=== PATIENT | male | born 1945 | race Caucasian/White ===

== ENCOUNTER 2017-07-10 06:31 | Emergency (ER) | payer MEDICARE, OTHER ==
[2017-07-10 06:39] VITALS: BP 126/72
--- NOTE | 2017-07-10 06:55 | EDM.PDOC ---
ED HPI GENERAL MEDICAL PROBLEM - General Chief Complaint: ENT Problem Stated Complaint: POST EAR SURG, STILL BLEEDING Time Seen by Provider: 07/10/17 06:40 Source of Information: Reports: Patient History Limitations: Reports: No Limitations - History of Present Illness INITIAL COMMENTS - FREE TEXT/NARRATIVE: ER with c/o bleeding from surgical incision. Large excisional biopsy for basal skin cancer to area anterior to ear on Sunday. Noted bleeding to have started at supper, seemed to have stopped until woke this am and was dripping down neck. Location: Reports: Face Associated Symptoms: Reports: No Other Symptoms - Related Data Allergies Allergy/AdvReac Type Severity Reaction Status Date / Time Penicillins Allergy Anaphylactic Verified 07/10/17 06:43 Shock Home Meds: Home Meds Aspirin [Halfprin] 81 mg PO BEDTIME 10/01/14 [History] Citalopram [Citalopram HBr] 40 mg PO DAILY 10/01/14 [History] Metoprolol Tartrate [Lopressor] 25 mg PO Q12HR 10/01/14 [History] Simvastatin 40 mg PO BEDTIME 10/01/14 [History] Tiotropium [Spiriva Handihaler] 18 mcg PO DAILY 10/01/14 [History] amLODIPine Besylate [Amlodipine Besylate] 10 mg PO DAILY 10/01/14 [History] HYDROcodone/Ibuprofen [Hydrocodone-Ibuprofen 7.5-200] 1 tab PO Q8HR PRN [History] Isosorbide Mononitrate [Isosorbide Mononitrate ER] 30 mg PO .MORNING 10/08/14 [ History] Montelukast Sodium [Singulair] 10 mg PO BEDTIME 10/08/14 [History] Pramipexole [Mirapex] 0.125 mg PO BEDTIME PRN 10/08/14 [History] metFORMIN [Glucophage] 500 mg PO BID 12/06/14 [History] Past Medical History HEENT History: Reports: Impaired Vision Cardiovascular History: Reports: CAD, High Cholesterol, Hypertension, Stents, Other (See Below) Respiratory History: Reports: Asthma Psychiatric History: Reports: Depression Endocrine/Metabolic History: Reports: Diabetes, Type II Oncologic (Cancer) History: Reports: Basal Cell Carcinoma Other Dermatologic History: basal cell carcinoma - Infectious Disease History Infectious Disease History: Reports: None - Past Surgical History Cardiovascular Surgical History: Reports: Coronary Artery Stent GI Surgical History: Reports: Hernia, Inguinal Other Musculoskeletal Surgeries/Procedures:: knee surgery and big toe surgery Other Oncologic Surgeries/Procedures: basal cell carcinoma Social & Family History - Family History Family Medical History: Noncontributory - Tobacco Use Smoking Status *Q: Never Smoker Second Hand Smoke Exposure: No - Alcohol Use Days Per Week of Alcohol Use: 0 - Recreational Drug Use Recreational Drug Use: No - Living Situation & Occupation Living situation: Reports: , with Spouse Occupation: Employed ED ROS GENERAL - Review of Systems Review Of Systems: ROS reveals no pertinent complaints other than HPI. ED EXAM, SKIN/RASH Exam: See Below Exam Limited By: No Limitations General Appearance: No Apparent Distress, Mild Distress Eye Exam: Bilateral Eye: EOMI Ears: Normal External Exam, Normal Canal. No: Hearing Loss Nose: Normal Inspection Throat/Mouth: Normal Inspection Head: Normocephalic, Other (approximate 2 inch vertical surgical incision anterior to right tragus. No swelling or redness, slight bleeding mid insicion, large clot removed and with light pressure, bleeding ceased.) Respiratory/Chest: No Respiratory Distress, Lungs Clear, Normal Breath Sounds Cardiovascular: Normal Peripheral Pulses, Regular Rate, Rhythm GI/Abdominal: Normal Bowel Sounds, Soft Neurological: Alert, Oriented, Normal Cognition Psychiatric: Normal Affect Skin: Normal Color, Wound/Incision. No: Erythema Location, Skin: Face Course - Vital Signs Last Recorded V/S: Last Vital Signs Temp 97.7 F 07/10/17 06:38 Pulse 77 07/10/17 06:38 Resp 16 07/10/17 06:38 BP 126/72 07/10/17 06:38 Pulse Ox 96 07/10/17 06:38 Departure - Departure Time of Disposition: 06:49 Disposition: Home, Self-Care 01 Condition: Good Clinical Impression: Bleeding from wound, Status post excisional biopsy - Discharge Information Instructions: Laceration Care, Adult Additional Instructions: pressure dressing to wound x 2 hours then may remove coban and tape remaining dressing, follow up if recurrent bleeding
== END 2017-07-10 07:13 | disposition home or self-care (01) ==
LOC: DL.ED 06:31
DX: H95.42 Postprocedural hemorrhage of ear and mastoid process following other procedure (principal); E11.9 Type 2 diabetes mellitus without complications; I10 Essential (primary) hypertension; J45.909 Unspecified asthma, uncomplicated; Z88.0 Allergy status to penicillin; Z79.899 Other long term (current) drug therapy; Z79.82 Long term (current) use of aspirin
CPT/HCPCS: 99282; 99283

== ENCOUNTER 2017-08-19 20:58 | Emergency (ER) | payer MEDICARE, OTHER ==
[2017-08-19 21:16] VITALS: BP 136/73
--- NOTE | 2017-08-19 21:16 | EDM.PDOC ---
ED HPI GENERAL MEDICAL PROBLEM - General Chief Complaint: Upper Extremity Injury/Pain Stated Complaint: INCISION PAIN [id number] Time Seen by Provider: 08/19/17 21:13 Source of Information: Reports: Patient History Limitations: Reports: No Limitations - History of Present Illness INITIAL COMMENTS - FREE TEXT/NARRATIVE: s/p right forearm surgery 08-08, right arm been more swollen and sore. denies numbness in fingers. done @ "[facility]" dermatology. Right Lower Arm Pain Score (Numeric/FACES): 6 - Related Data Allergies Allergy/AdvReac Type Severity Reaction Status Date / Time Penicillins Allergy Anaphylactic Verified 08/19/17 21:16 Shock Home Meds: Home Meds Aspirin [Halfprin] 81 mg PO BEDTIME 10/01/14 [History] Metoprolol Tartrate [Lopressor] 25 mg PO Q12HR 10/01/14 [History] Simvastatin 40 mg PO BEDTIME 10/01/14 [History] Tiotropium [Spiriva Handihaler] 18 mcg PO DAILY 10/01/14 [History] amLODIPine Besylate [Amlodipine Besylate] 10 mg PO DAILY 10/01/14 [History] Isosorbide Mononitrate [Isosorbide Mononitrate ER] 30 mg PO .MORNING 10/08/14 [ History] Montelukast Sodium [Singulair] 10 mg PO BEDTIME 10/08/14 [History] metFORMIN [Glucophage] 500 mg PO BID 12/06/14 [History] Past Medical History HEENT History: Reports: Impaired Vision Cardiovascular History: Reports: CAD, High Cholesterol, Hypertension, Stents, Other (See Below) Respiratory History: Reports: Asthma Psychiatric History: Reports: Depression Endocrine/Metabolic History: Reports: Diabetes, Type II Oncologic (Cancer) History: Reports: Basal Cell Carcinoma Other Dermatologic History: basal cell carcinoma - Infectious Disease History Infectious Disease History: Reports: None - Past Surgical History Cardiovascular Surgical History: Reports: Coronary Artery Stent GI Surgical History: Reports: Hernia, Inguinal Other Musculoskeletal Surgeries/Procedures:: knee surgery and big toe surgery Other Oncologic Surgeries/Procedures: basal cell carcinoma Social & Family History - Family History Family Medical History: Noncontributory - Tobacco Use Smoking Status *Q: Never Smoker Second Hand Smoke Exposure: No - Alcohol Use Days Per Week of Alcohol Use: 0 - Recreational Drug Use Recreational Drug Use: No - Living Situation & Occupation Living situation: Reports: , with Spouse Occupation: Employed Review of Systems - Review of Systems Review Of Systems: ROS reveals no pertinent complaints other than HPI. ED EXAM, GENERAL - Physical Exam Exam: See Below Exam Limited By: No Limitations General Appearance: Alert, WD/WN, No Apparent Distress Ears: Hearing Grossly Normal Throat/Mouth: Normal Voice, No Airway Compromise Head: Atraumatic Neck: Non-Tender, Full Range of Motion Respiratory/Chest: No Respiratory Distress Cardiovascular: Regular Rate, Rhythm GI/Abdominal: Soft, Non-Tender Extremities: Other (right forearm suture intact with mid local erythema without cellulitis, no lymphangitis, NV wnl) Neurological: Alert, Oriented, Normal Cognition, Normal Gait, No Motor/Sensory Deficits Psychiatric: Anxious Skin Exam: Warm, Dry, Normal Color Lymphatic: No Adenopathy Course - Vital Signs Last Recorded V/S: Last Vital Signs Temp 36.7 C 08/19/17 21:07 Pulse 68 08/19/17 21:07 Resp 16 08/19/17 21:07 BP 136/73 08/19/17 21:07 Pulse Ox 96 08/19/17 21:07 - Orders/Labs/Meds Orders: Active Orders 24 hr Category Date Time Status CULTURE BLOOD [BC] Stat Lab 08/19/17 21:20 Received Clindamycin Phosphate [Cleocin] 900 mg Med 08/19/17 22:33 Ordered Sodium Chloride 0.9% [Normal Saline] 100 ml IV ONETIME Labs: Laboratory Tests 08/19/17 08/19/17 08/19/17 Range/Units 21:20 21:20 21:20 WBC 12.3 H (5.0-10.0) 10^3/uL RBC 5.03 (4.6-6.2) 10^6/uL Hgb 14.1 (14.0-18.0) g/dL Hct 41.1 (40.0-54.0) % MCV 81.7 (80-100) fL MCH 28.0 (27.0-34.0) pg MCHC 34.3 (33.0-35.0) g/dL Plt Count 236 (150-450) 10^3/uL Neut % (Auto) 58.6 (42.2-75.2) % Lymph % (Auto) 27.9 (20.5-50.1) % O[place] % (Auto) 10.2 H (2-8) % Eos % (Auto) 2.8 (1.0-3.0) % Baso % (Auto) 0.5 (0.0-1.0) % Sodium 138 (135-145) mmol/L Potassium 3.8 (3.6-5.0) mmol/L Chloride 104 (101-111) mmol/L Carbon Dioxide 23.0 (21.0-31.0) mmol/L Anion Gap 14.8 BUN 25 H (7-18) mg/dL Creatinine 0.7 (0.6-1.3) mg/dL Est Cr Clr Drug Dosing 81.05 mL/min Estimated GFR (MDRD) > 60 BUN/Creatinine Ratio 35.71 Glucose 179 H (74-105) mg/dL Lactic Acid 2.1 (0.5-2.2) mmol/L Calcium 9.3 (8.4-10.2) mg/dl Total Bilirubin 0.6 (0.2-1.0) mg/dL AST 22 (10-42) IU/L ALT 21 (10-60) IU/L Alkaline Phosphatase 57 (42-121) IU/L Total Protein 7.1 (6.7-8.2) g/dl Albumin 4.1 (3.2-5.5) g/dl Globulin 3.0 Albumin/Globulin Ratio 1.37 - Re-Assessments/Exams Free Text/Narrative Re-Assessment/Exam: 08/19/17 22:[address] Syed @ who kindly accepted pt. Departure - Departure Time of Disposition: 22:36 Disposition: DC/Tfer to Acute Hospital 02 Condition: Good Clinical Impression: Post-operative wound abscess Qualifiers: Encounter type: initial encounter Qualified Code(s): T81.4XXA - Infection following a procedure, initial encounter - Discharge Information Forms: Interfacility Transfer EMTALA - My Orders Last 24 Hours: My Active Orders 08/19/17 21:20 CULTURE BLOOD [BC] Stat 08/19/17 22:33 Clindamycin Phosphate [Cleocin] 900 mg Sodium Chloride 0.9% [Normal Saline] 100 ml IV ONETIME - Assessment/Plan Last 24 Hours: My Active Orders 08/19/17 21:20 CULTURE BLOOD [BC] Stat 08/19/17 22:33 Clindamycin Phosphate [Cleocin] 900 mg Sodium Chloride 0.9% [Normal Saline] 100 ml IV ONETIME
[2017-08-19 21:47] LABS: CHLORIDE,CL 104 mmol/L (101-111); SODIUM,NA 138 mmol/L (135-145)
[2017-08-19] MEDS ORDERED: Clindamycin Phosphate 900 MG in Sodium Chloride 0.9% 100 ML IV ONE (22:33)
== END 2017-08-19 23:02 ==
LOC: DL.ED 20:58
DX: T81.4XXA Infection following a procedure, initial encounter (principal); L02.413 Cutaneous abscess of right upper limb; I10 Essential (primary) hypertension; E11.9 Type 2 diabetes mellitus without complications; Z88.0 Allergy status to penicillin; Z79.82 Long term (current) use of aspirin; Z79.84 Long term (current) use of oral hypoglycemic drugs; Z79.899 Other long term (current) drug therapy
CPT/HCPCS: 36415; 73200; 80053; 83605; 85025; 87040; 96365; 99285; J7050; S0077

== ENCOUNTER 2018-06-29 17:44 | Emergency (ER) | payer MEDICARE, OTHER ==
[2018-06-29] MEDS ORDERED: Sodium Chloride 0.9% 1,000 ML IV ONE (17:53)
[2018-06-29] MEDS ORDERED: Iopamidol 612 MG/ML 100 ML Bottle IVPUSH ONE (17:53)
[2018-06-29] MEDS ORDERED: fentaNYL 100 MCG/2 ML SDV IVPUSH ONE (17:53)
[2018-06-29] MEDS ORDERED: Ondansetron 4 MG/2 ML SDV IV ONE ×2 (17:53→19:53)
[2018-06-29] MEDS ORDERED: Sodium Chloride 0.9% 10 ML Syringe FLUSH PRN (17:56)
[2018-06-29 18:44] LABS: ANION GAP 13.3; CHLORIDE,CL 103 mmol/L (101-111); SODIUM,NA 134 mmol/L (135-145)
--- NOTE | 2018-06-29 19:00 | EDM.PDOC ---
"Scribed by Maria Esther Douglas 06/29/18 181 for Arpita Kiran MD ED HPI GENERAL MEDICAL PROBLEM - General Chief Complaint: Trauma Stated Complaint: AMBULANCE,TRAUMA,FALL Time Seen by Provider: 06/29/18 17:41 Source of Information: Reports: Patient, EMS, EMS Notes Reviewed, Family (, son), RN, RN Notes Reviewed History Limitations: Reports: No Limitations - History of Present Illness INITIAL COMMENTS - FREE TEXT/NARRATIVE: TRAUMA CODED CALLED OVERHEAD: 1657 Hours Pt arrives from home to ER by [facility] at: 1741 Hours with report that pt fell backwards off a tall step ladder on the second floor of his home and landed on his back. Pt estimates that he fell at about 1330 Hours today, but was not found by family until approx. 4 or 5 hours later. Pt does not know if he lost consciousness or not. Pt c/o confusion/memory loss, severe low back pain. PRIMARY TRAUMA SURVEY: Arrives by ambulance without c-collar and without long spine board. Pt awake, alert, oriented to person, and place only with confusion to the recent events. Pt was actively vomiting on arrival. AIRWAY: Patent nasal and oral airways. Conversant with clear speech. BREATHING: Spontaneous respirations, with lungs clear to auscultation B/L. CIRCULATION: Good color, no cyanosis. Intact peripheral pulses at all 4 distal extremities, normal capillary refill time at all four extremities distal digits. Heart RRR, no murmur, no rub. DISABILITY/DEFORMITIES: No bleeding. No upper extremity pain, obvious deformity, lacerations, abrasions, swelling, bruising, discoloration, or other signs of injury. B/L hip pain to palpation. Martha pelvis intact, & stable, but very tender. Abdomen benign to exam with no signs of pain to palpation. Chest non-tender anteriorly, no flail chest, crepitus, or subcutaneous emphysema. Lumbar region of spine acutely tender to palpation. Neuro. grossly intact with pt. A&O x2, some appropriate conversation, with some confusion. CN II-XII intact. No acute motor or sensory deficits, GCS 14 on arrival to ER. Skin clean, dry, warm, and intact. EXPOSURE: Pt's clothing was cut free and removed. 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 Medication(s) (Fentanyl 100mcg IM by EMS on scene.) - Related Data Allergies Allergy/AdvReac Type Severity Reaction Status Date / Time Penicillins Allergy Anaphylactic Verified 08/19/17 21:16 Shock Home Meds: Home Meds Aspirin [Halfprin] 81 mg PO BEDTIME 10/01/14 [History] Metoprolol Tartrate [Lopressor] 25 mg PO Q12HR 10/01/14 [History] Simvastatin 40 mg PO BEDTIME 10/01/14 [History] Tiotropium [Spiriva Handihaler] 18 mcg PO DAILY 10/01/14 [History] amLODIPine Besylate [Amlodipine Besylate] 10 mg PO DAILY 10/01/14 [History] Isosorbide Mononitrate [Isosorbide Mononitrate ER] 30 mg PO .MORNING 10/08/14 [ History] Montelukast Sodium [Singulair] 10 mg PO BEDTIME 10/08/14 [History] metFORMIN [Glucophage] 1,000 mg PO BID 12/06/14 [History] Pramipexole [Mirapex] 0.125 mg PO BEDTIME 06/29/18 [History] Trospium Chloride 20 mg PO BID 06/29/18 [History] Venlafaxine [Effexor XR] 150 mg PO DAILY 06/29/18 [History] glipiZIDE [Glucotrol XL] 5 mg PO DAILY 06/29/18 [History] Past Medical History HEENT History: Reports: Impaired Vision Cardiovascular History: Reports: CAD, High Cholesterol, Hypertension, Stents, Other (See Below) Respiratory History: Reports: Asthma Psychiatric History: Reports: Depression Endocrine/Metabolic History: Reports: Diabetes, Type II Oncologic (Cancer) History: Reports: Basal Cell Carcinoma Dermatologic History: Reports: Benign Melanoma Other Dermatologic History: basal cell carcinoma - Infectious Disease History Infectious Disease History: Reports: None - Past Surgical History Cardiovascular Surgical History: Reports: Coronary Artery Stent GI Surgical History: Reports: Hernia, Inguinal Other Musculoskeletal Surgeries/Procedures:: knee surgery and big toe surgery Other Oncologic Surgeries/Procedures: basal cell carcinoma Social & Family History - Family History Family Medical History: Noncontributory - Caffeine Use Caffeine Use: Reports: Coffee - Living Situation & Occupation Living situation: Reports: , with Spouse Occupation: Employed Review of Systems - Review of Systems Review Of Systems: Unable To Obtain ED EXAM, GENERAL - Physical Exam Exam: See Below Free Text/Narrative:: SECONDARY TRAUMA SURVEY: at 1802 Hours Exam Limited By: Altered Mental Status General Appearance: Alert, No Apparent Distress, Anxious Eye Exam: Bilateral Eye: EOMI, Normal Inspection, PERRL Ears: Normal External Exam, Normal Canal, Hearing Grossly Normal, Normal TMs, Other (No hemotympanum B/L) Nose: Normal Inspection, Normal Mucosa, No Blood Throat/Mouth: Normal Inspection, Normal Lips, Normal Teeth, Normal Gums, Normal Oropharynx, Normal Voice, No Airway Compromise Head: Atraumatic, Normocephalic Neck: Normal Inspection, Supple, Non-Tender, Full Range of Motion, Other (C- spine cleared by CT scan) Respiratory/Chest: No Respiratory Distress, Lungs Clear, Normal Breath Sounds, No Accessory Muscle Use, Chest Non-Tender Cardiovascular: Regular Rate, Rhythm, No Edema GI/Abdominal: Normal Bowel Sounds, Soft, Non-Tender (abdomen non-tender at secondary trauma survey), No Distention, No Abnormal Bruit, Pelvis Stable. No: Guarding, Rigid, Rebound (Male) Exam: Normal Inspection Rectal (Males) Exam: Deferred Back Exam: Decreased Range of Motion, Muscle Spasm, Paraspinal Tenderness ( lumbar), Vertebral Tenderness (lumbar). No: CVA Tenderness (L), CVA Tenderness (R) Extremities: Normal Range of Motion, No Pedal Edema, Normal Capillary Refill, Other (soft tissue swelling w/hematoma at Rt proximal posterior forearm) Neurological: Alert, Oriented (person only), CN II-XII Intact, No Motor/Sensory Deficits, Confused, Memory Loss Recent Events, Other (GCS 14 at one hour, and at time of disposition) Psychiatric: Normal Mood Skin Exam: Warm, Dry, Intact EKG INTERPRETATION EKG Date: 06/29/18 Time: 18:13 Rhythm: Other (sinus rhythm) Rate (Beats/Min): 70 [place]: Normal P-Wave: Present QRS: Normal ST-T: Normal QT: Normal Comparison: NA - No Prior EKG Course - Vital Signs Last Recorded V/S: See Trauma paper chart for VS. - Orders/Labs/Meds Orders: Active Orders 24 hr Category Date Time Status Blood Glucose Check, Bedside [] ONETIME Care 06/29/18 17:57 Active EKG 12 Lead [EKG Documentation Completion] [] STAT Care 06/29/18 17:57 Active Insert Clifford Catheter [Insert Urinary Catheter] [OM.PC] Care 06/29/18 17:56 Ordered Stat Peripheral IV Care [] . DIRECTED Care 06/29/18 17:57 Active Urinary Catheter Assessment [RC] ASDIRECTED Care 06/29/18 17:56 Active Sodium Chloride 0.9% @ 150 MLS/HR (1000ml) Med 06/29/18 20:00 Ordered Sodium Chloride 0.9% [Normal Saline] 1,000 ml IV ASDIRECTED Sodium Chloride 0.9% [Saline Flush] Med 06/29/18 17:56 Active 10 ml FLUSH ASDIRECTED PRN Peripheral IV Insertion Adult [OM.PC] Stat Oth 06/29/18 17:57 Ordered Medication Orders Sodium Chloride (Saline Flush) 10 ml FLUSH ASDIRECTED PRN PRN Reason: Keep Vein Open Labs: Laboratory Tests 06/29/18 06/29/18 06/29/18 Range/Units 18:08 18:08 18:08 WBC 13.1 H (5.0-10.0) 10^3/uL RBC 4.87 (4.6-6.2) 10^6/uL Hgb 13.0 L (14.0-18.0) g/dL Hct 39.2 L (40.0-54.0) % MCV 80.5 (80-100) fL MCH 26.7 L (27.0-34.0) pg MCHC 33.2 (33.0-35.0) g/dL Plt Count 205 (150-450) 10^3/uL Neut % (Auto) 70.8 (42.2-75.2) % Lymph % (Auto) 18.9 L (20.5-50.1) % [place] % (Auto) 8.9 H (2-8) % Eos % (Auto) 1.1 (1.0-3.0) % Baso % (Auto) 0.3 (0.0-1.0) % PT 10.9 (9.0-12.0) SEC INR 1.1 (0.9-1.2) APTT 24.7 (22.0-34.0) SEC Sodium 134 L (135-145) mmol/L Potassium 4.3 (3.6-5.0) mmol/L Chloride 103 (101-111) mmol/L Carbon Dioxide 22.0 (21.0-31.0) mmol/L Anion Gap 13.3 BUN 29 H (7-18) mg/dL Creatinine 0.8 (0.6-1.3) mg/dL Est Cr Clr Drug Dosing 69.89 mL/min Estimated GFR (MDRD) > 60 BUN/Creatinine Ratio 36.25 Glucose 192 H (74-105) mg/dL POC Glucose (83-110) mg/dl Calcium 8.5 (8.4-10.2) mg/dl Total Bilirubin 0.6 (0.2-1.0) mg/dL AST 21 (10-42) IU/L ALT 17 (10-60) IU/L Alkaline Phosphatase 43 (42-121) IU/L Creatine Kinase 68 (26-174) IU/L Troponin I < 0.02 (0.00-0.02) ng/ml Total Protein 6.6 L (6.7-8.2) g/dl Albumin 3.6 (3.2-5.5) g/dl Globulin 3.0 Albumin/Globulin Ratio 1.20 Amylase 43 (28-100) U/L Lipase 18 L (22-51) U/L Urine Color (YELLOW) Urine Appearance (CLEAR) Urine pH (5.0-9.0) Ur Specific [place] (1.005-1.030) Urine Protein (NEGATIVE) Urine Glucose (UA) (NEGATIVE) Urine Ketones (NEGATIVE) Urine Occult Blood (NEGATIVE) Urine Nitrite (NEGATIVE) Urine Bilirubin (NEGATIVE) Urine Urobilinogen (0.2-1.0) mg/dL Ur Leukocyte Esterase (NEGATIVE) Urine RBC /HPF Urine WBC (0-5/HPF) /HPF Ur Epithelial Cells /HPF Urine Bacteria (0-FEW/HPF) /HPF Urine Mucus /LPF Urine Opiates Screen (NEGATIVE) Ur Oxycodone Screen (NEGATIVE) Urine Methadone Screen (NEGATIVE) Ur Barbiturates Screen (NEGATIVE) U Tricyclic Antidepress (NEGATIVE) Ur Phencyclidine Scrn (NEGATIVE) Ur Amphetamine Screen (NEGATIVE) U Methamphetamines Scrn (NEGATIVE) Urine MDMA Screen (NEGATIVE) U Benzodiazepines Scrn (NEGATIVE) Urine Cocaine Screen (NEGATIVE) U Marijuana (THC) Screen (NEGATIVE) Ethyl Alcohol < 5 mg/dL 06/29/18 06/29/18 06/29/18 Range/Units 18:18 19:14 19:14 WBC (5.0-10.0) 10^3/uL RBC (4.6-6.2) 10^6/uL Hgb (14.0-18.0) g/dL Hct (40.0-54.0) % MCV (80-100) fL MCH (27.0-34.0) pg MCHC (33.0-35.0) g/dL Plt Count (150-450) 10^3/uL Neut % (Auto) (42.2-75.2) % Lymph % (Auto) (20.5-50.1) % [place] % (Auto) (2-8) % Eos % (Auto) (1.0-3.0) % Baso % (Auto) (0.0-1.0) % PT (9.0-12.0) SEC INR (0.9-1.2) APTT (22.0-34.0) SEC Sodium (135-145) mmol/L Potassium (3.6-5.0) mmol/L Chloride (101-111) mmol/L Carbon Dioxide (21.0-31.0) mmol/L Anion Gap BUN (7-18) mg/dL Creatinine (0.6-1.3) mg/dL Est Cr Clr Drug Dosing mL/min Estimated GFR (MDRD) BUN/Creatinine Ratio Glucose (74-105) mg/dL POC Glucose 171 H (83-110) mg/dl Calcium (8.4-10.2) mg/dl Total Bilirubin (0.2-1.0) mg/dL AST (10-42) IU/L ALT (10-60) IU/L Alkaline Phosphatase (42-121) IU/L Creatine Kinase (26-174) IU/L Troponin I (0.00-0.02) ng/ml Total Protein (6.7-8.2) g/dl Albumin (3.2-5.5) g/dl Globulin Albumin/Globulin Ratio Amylase (28-100) U/L Lipase (22-51) U/L Urine Color Yellow (YELLOW) Urine Appearance Clear (CLEAR) Urine pH 6.0 (5.0-9.0) Ur Specific [place] 1.020 (1.005-1.030) Urine Protein Negative (NEGATIVE) Urine Glucose (UA) 100 H (NEGATIVE) Urine Ketones Trace H (NEGATIVE) Urine Occult Blood Negative (NEGATIVE) Urine Nitrite Negative (NEGATIVE) Urine Bilirubin Negative (NEGATIVE) Urine Urobilinogen 0.2 (0.2-1.0) mg/dL Ur Leukocyte Esterase Negative (NEGATIVE) Urine RBC 0-5 /HPF Urine WBC 0-5 (0-5/HPF) /HPF Ur Epithelial Cells Few /HPF Urine Bacteria Few (0-FEW/HPF) /HPF Urine Mucus Moderate H /LPF Urine Opiates Screen Negative (NEGATIVE) Ur Oxycodone Screen Negative (NEGATIVE) Urine Methadone Screen Negative (NEGATIVE) Ur Barbiturates Screen Negative (NEGATIVE) U Tricyclic Antidepress Negative (NEGATIVE) Ur Phencyclidine Scrn Negative (NEGATIVE) Ur Amphetamine Screen Negative (NEGATIVE) U Methamphetamines Scrn Negative (NEGATIVE) Urine MDMA Screen Negative (NEGATIVE) U Benzodiazepines Scrn Negative (NEGATIVE) Urine Cocaine Screen Negative (NEGATIVE) U Marijuana (THC) Screen Negative (NEGATIVE) Ethyl Alcohol mg/dL Meds: Medications Generic Name Dose Route Start Last Admin Trade Name Freq PRN Reason Stop Dose Admin Sodium Chloride 10 ml 06/29/18 17:56 Saline Flush FLUSH ASDIRECTED PRN Keep Vein Open Discontinued Medications Generic Name Dose Route Start Last Admin Trade Name Freq PRN Reason Stop Dose Admin Fentanyl 50 mcg 06/29/18 17:53 06/29/18 18:44 Sublimaze IVPUSH 06/29/18 17:54 50 mcg ONETIME ONE Administration Hydromorphone HCl 1 mg 06/29/18 19:53 Dilaudid IVPUSH 06/29/18 19:54 ONETIME ONE Sodium Chloride 1,000 mls @ 999 mls/hr 06/29/18 17:53 06/29/18 18:36 Normal Saline IV 06/29/18 18:53 999 mls/hr .BOLUS ONE Administration Iopamidol 100 ml 06/29/18 17:53 06/29/18 19:12 Isovue-300 (61%) IVPUSH 06/29/18 17:54 100 ml ONETIME ONE Administration Ondansetron HCl 4 mg 06/29/18 17:53 06/29/18 18:42 Zofran IV 06/29/18 17:54 4 mg ONETIME ONE Administration Ondansetron HCl 4 mg 06/29/18 19:53 Zofran IV 06/29/18 19:54 ONETIME ONE - Radiology Interpretation Free Text/Narrative:: [facility] [place] - [facility] Final Radiology Report Call: [phone] assistance Online chat: [email or web address] Name: SHANNON RAPHAEL Age: 72Years M Date: 06/29/2018 SSN: -- : 1945 Study: CT HEAD WO Requesting Physician: ARPITA KIRAN Images: [id number] Addl Studies: Provided Clinical History: Contrast: Without Contrast Medium: Contrast Amount: Contrast Method: Page 1 of 2 EXAM: CT Head Without Intravenous Contrast EXAM DATE/TIME: 06/29/2018 5:55 PM CLINICAL HISTORY: 72 years old, male; Signs and symptoms; Other: Fell off ladder unknown height, found 4 or 5 hours later with confusion, vomiting TECHNIQUE: Axial computed tomography images of the head/brain without intravenous contrast. All CT scans at this facility use at least one of these dose optimization techniques: automated exposure control; mA and/or kV adjustment per patient size (includes targeted exams where dose is matched to clinical indication); or iterative reconstruction. Sagittal reformatted images were created and reviewed. COMPARISON: CT Head wo Cont 04/28/2015 10:14 AM FINDINGS: Brain: No acute intracerebral abnormality or injury. Mild age-appropriate cerebral atrophy. A small pancake-like area of chronic calcified thickening of the right tentorium cerebelli is seen on images 29 and 13 of series 12, not markedly changed since 2014. I doubt this represents a calcified meningioma. Ventricles: Normal. No ventriculomegaly. Bones/joints: Normal. No acute fracture. Sinuses: Moderate mucosal thickening of the left maxillary sinus is present. No evidence of acute sinusitis. Mastoid air cells: Normal as visualized. No mastoid effusion. Soft tissues: Normal. SHANNON RAPHAEL | Final Radiology Report CONFIDENTIALITY STATEMENT This report is intended only for use by the referring physician, and only in accordance with law. If you received this in error, call [phone]. Page 2 of 2 IMPRESSION: 1. No acute intracerebral abnormality or injury. 2. Mild age-appropriate cerebral atrophy. A small pancake-like area of chronic calcified thickening of the right tentorium cerebelli is seen on images 29 and 13 of series 12, not markedly changed since the previous head CT from 2014. I doubt this represents a calcified meningioma. 3. Moderate mucosal thickening of the left maxillary sinus is present. No evidence of acute sinusitis. Thank you for allowing us to participate in the care of your patient. Dictated and Authenticated by: Cullen Pantoja MD 06/29/2018 6:37 PM Central Time ([place] & [place]) [facility] - [facility] Final Radiology Report Call: [phone] assistance Online chat: [email or web address] Name: SHANNON RAPHAEL Age: 72Years M Date: 06/29/2018 SSN: -- : 1945 Study: CT SPINE CERVICAL WO Requesting Physician: ARPITA KIRAN Images: [id number] Addl Studies: Provided Clinical History: Contrast: Without Contrast Medium: Contrast Amount: Contrast Method: Page 1 of 2 EXAM: CT Cervical Spine Without Intravenous Contrast EXAM DATE/TIME: 06/29/2018 5:55 PM CLINICAL HISTORY: 72 years old, male; Signs and symptoms; Other: Fall from ladder/pain TECHNIQUE: Axial computed tomography images of the cervical spine without intravenous contrast. All CT scans at this facility use at least one of these dose optimization techniques: automated exposure control; mA and/or kV adjustment per patient size (includes targeted exams where dose is matched to clinical indication); or iterative reconstruction. Coronal and sagittal reformatted images were created and reviewed. COMPARISON: No relevant prior studies available. FINDINGS: VERTEBRAE: No acute fractures. The cervical spine alignment is within normal limits. Chronic degenerative vertebral body endplate osteophytosis with diminished disc height is seen at levels C2- C6. DISCS/SPINAL CANAL/NEURAL FORAMINA: Chronic degenerative bony neuroforaminal stenosis secondary to uncal joint and posterior facet joint degenerative arthropathy, bilaterally at C3/C4, C4/C5 and C5/C6. Moderate to moderately severe central spinal canal stenosis is present at levels C2/C3 and C3/C4, secondary to posterior partly calcified disc bulging and short pedicles. SOFT TISSUES: Normal. Normal position, size and shape of the cerebellar tonsils. SHANNON RAPHAEL | Final Radiology Report CONFIDENTIALITY STATEMENT This report is intended only for use by the referring physician, and only in accordance with law. If you received this in error, call [phone]. Page 2 of 2 LUNG APICES: Unremarkable as visualized. IMPRESSION: 1. No acute fractures. 2. The cervical spine alignment is within normal limits. 3. Chronic degenerative vertebral body endplate osteophytosis with diminished disc height is seen at levels C2-C6. 4. Chronic degenerative bony neuroforaminal stenosis secondary to uncal joint and posterior facet joint degenerative arthropathy, bilaterally at C3/C4, C4/C5 and C5/C6. 5. Moderate to moderately severe central spinal canal stenosis is present at levels C2/C3 and C3/C4, secondary to posterior partly calcified disc bulging and short vertebral body pedicles. Thank you for allowing us to participate in the care of your patient. Dictated and Authenticated by: Cullen Pantoja MD 06/29/2018 6:43 PM Central Time ([place] & [place]) [facility] Final Radiology Report Call: [phone] assistance Online chat: [email or web address] Name: SHANNON RAPHAEL Age: 72Years M Date: 06/29/2018 SSN: -- : 1945 Study: CT CHEST W Requesting Physician: ARPITA KIRAN Images: [id number] Addl Studies: [id number] - CT ABDOMEN/PELVIS W (1) Provided Clinical History: Contrast: With Contrast Medium: [id number] Contrast Amount: 100 mL Contrast Method: lac Page 1 of 3 EXAM: CT Chest With Intravenous Contrast EXAM DATE/TIME: 06/29/2018 5:55 PM CLINICAL HISTORY: 72 years old, male; Signs and symptoms; Vomiting and other: Fall from ladder, unknown height found 4-5 hours later--low back pain and martha pelvis; Other: Same TECHNIQUE: Axial computed tomography images of the chest with intravenous contrast. All CT scans at this facility use at least one of these dose optimization techniques: automated exposure control; mA and/or kV adjustment per patient size (includes targeted exams where dose is matched to clinical indication); or iterative reconstruction. Coronal and sagittal reformatted images were created and reviewed. CONTRAST: 100 ml of [id number] administered intravenously. COMPARISON: CT Chest wo Cont 06/06/2016 12:57 PM FINDINGS: Lungs: There is mild dependent atelectasis in the right lung base. Pleural space: Normal. No pneumothorax. No pleural effusion. Heart: Normal. No cardiomegaly. No pericardial effusion. Aorta: There is calcification of the aortic annulus which is unchanged. The aorta demonstrates moderate atherosclerotic calcification. Lymph nodes: Unremarkable. No enlarged lymph nodes. SHANNON RAPHAEL | Final Radiology Report Page 2 of 3 Bones/joints: There an old right anterolateral rib fracture on transaxial series 16 image 33. Soft tissues: Unremarkable. IMPRESSION: 1. Mild dependent atelectasis in the right lung base. 2. Calcification of the aortic valve anulus. 3. Old right rib fracture. No new rib fracture is seen. 4. No sign of acute cardiopulmonary abnormality. EXAM: CT Abdomen and Pelvis With Intravenous Contrast EXAM DATE/TIME: 06/29/2018 5:55 PM CLINICAL HISTORY: 72 years old, male; Signs and symptoms; Vomiting and other: Fall from ladder, unknown height found 4-5 hours later--low back pain and martha pelvis; Other: Same TECHNIQUE: Axial computed tomography images of the abdomen and pelvis with intravenous contrast. All CT scans at this facility use at least one of these dose optimization techniques: automated exposure control; mA and/or kV adjustment per patient size (includes targeted exams where dose is matched to clinical indication); or iterative reconstruction. Coronal and sagittal reformatted images were created and reviewed. CONTRAST: 100 ml of [id number] administered intravenously. COMPARISON: CT Chest wo Cont 06/06/2016 12:57 PM FINDINGS: Lower thorax: No acute findings. ABDOMEN: Liver: Normal. No mass. Gallbladder and bile ducts: Normal. No calcified stones. No ductal dilation. Pancreas: Normal. No ductal dilation. Spleen: Normal. No splenomegaly. Adrenals: Normal. No mass. Kidneys and ureters: Normal. No hydronephrosis. Stomach and bowel: The stomach is distended with gas and fluid. There are multiple diverticula in the distal descending colon but no sign of acute diverticulitis. Appendix: A normal appendix is seen on series 17 and coronal image 45. The cecum is mobile and located in the right upper quadrant as is the appendix. SHANNON RAPHAEL | Final Radiology Report CONFIDENTIALITY STATEMENT This report is intended only for use by the referring physician, and only in accordance with law. If you received this in error, call [phone]. Page 3 of 3 PELVIS: Bladder: Unremarkable as visualized. Reproductive: Unremarkable as visualized. ABDOMEN and PELVIS: Intraperitoneal space: Normal. No free air. No significant fluid collection. Bones/joints: There is severe disc space narrowing and vacuum disc phenomenon at L4-L5 and at L3-L4. There is no sign of fracture in the abdomen or pelvis. Soft tissues: There is a 4.6 cm fat containing left inguinal hernia. Vasculature: The aorta demonstrates mild atherosclerotic calcification. Lymph nodes: Normal. No enlarged lymph nodes. IMPRESSION: 1. The stomach is distended with gas and fluid. 2. Multiple diverticula in the distal descending colon but no sign of acute diverticulitis. 3. Degenerative changes of the lumbar spine but no sign of fracture or dislocation. 4. No sign of intra-abdominal hemorrhage or other acute intra-abdominal injury. 5. Fat containing left inguinal hernia. Thank you for allowing us to participate in the care of your patient. Dictated and Authenticated by: Martínez Quintero DO 06/29/2018 7:04 PM Central Time ([place] & [place]) - Re-Assessments/Exams Free Text/Narrative Re-Assessment/Exam: 06/29/18 19:[address] Cabrera at [facility] for observation due to unknown Ht of fall, lengthy down time, unclear mech. of fall. Unknown if pt had a mechanical fall, or if he experienced a medical event such as arrhythmia, syncope, etc. Departure - Departure Time of Disposition: 19:40 Disposition: DC/Tfer to Acute Hospital 02 Condition: Serious Clinical Impression: Concussion Qualifiers: Encounter type: initial encounter Loss of consciousness presence/duration: with LOC of unspecified duration Qualified Code(s): S06.0X9A - Concussion with loss of consciousness of unspecified duration, initial encounter Fracture of transverse process of lumbar vertebra Qualifiers: Encounter type: initial encounter Fracture type: closed Qualified Code(s): S32.009A - Unspecified fracture of unspecified lumbar vertebra, initial encounter for closed fracture Fall from ladder Qualifiers: Encounter type: initial encounter Qualified Code(s): W11.XXXA - Fall on and from ladder, initial encounter Altered mental status Qualifiers: Altered mental status type: transient alteration of awareness Qualified Code(s) : R40.4 - Transient alteration of awareness - Discharge Information *PRESCRIPTION DRUG MONITORING PROGRAM REVIEWED*: No *COPY OF PRESCRIPTION DRUG MONITORING REPORT IN PATIENT KALEB: No Forms: ED Department Discharge, Interfacility Transfer EMTALA - My Orders Last 24 Hours: My Active Orders 06/29/18 17:56 Insert Clifford Catheter [Insert Urinary Catheter] [OM.PC] Stat Urinary Catheter Assessment [RC] ASDIRECTED Sodium Chloride 0.9% [Saline Flush] 10 ml FLUSH ASDIRECTED PRN 06/29/18 17:57 Blood Glucose Check, Bedside [RC] ONETIME EKG 12 Lead [EKG Documentation Completion] [RC] STAT Peripheral IV Care [RC] . DIRECTED Peripheral IV Insertion Adult [OM.PC] Stat 06/29/18 20:00 Sodium Chloride 0.9% @ 150 MLS/HR (1000ml) Sodium Chloride 0.9% [Normal Saline] 1,000 ml IV ASDIRECTED - Assessment/Plan Last 24 Hours: My Active Orders 06/29/18 17:56 Insert Clifford Catheter [Insert Urinary Catheter] [OM.PC] Stat Urinary Catheter Assessment [RC] ASDIRECTED Sodium Chloride 0.9% [Saline Flush] 10 ml FLUSH ASDIRECTED PRN 06/29/18 17:57 Blood Glucose Check, Bedside [RC] ONETIME EKG 12 Lead [EKG Documentation Completion] [RC] STAT Peripheral IV Care [RC] . DIRECTED Peripheral IV Insertion Adult [OM.PC] Stat 06/29/18 20:00 Sodium Chloride 0.9% @ 150 MLS/HR (1000ml) Sodium Chloride 0.9% [Normal Saline] 1,000 ml IV ASDIRECTED I have read and agree with the documentation that has been completed regarding this visit. By signing this record, I attest that the documentation was completed in my physical presence and is an accurate record of the encounter."
[2018-06-29] MEDS ORDERED: HYDROmorphone 1 MG/ML Syringe IVPUSH ONE ×2 (19:53→22:37)
[2018-06-29] MEDS ORDERED: Sodium Chloride 0.9% 1,000 ML IV SCH (20:00)
== END 2018-06-29 22:52 ==
LOC: DL.ED 17:44
DX: S06.0X9A Concussion with loss of consciousness of unspecified duration, initial encounter (principal); S32.009A Unspecified fracture of unspecified lumbar vertebra, initial encounter for closed fracture; R40.4 Transient alteration of awareness; E11.9 Type 2 diabetes mellitus without complications; I10 Essential (primary) hypertension; Z88.0 Allergy status to penicillin; Z79.82 Long term (current) use of aspirin; Z79.899 Other long term (current) drug therapy; W11.XXXA Fall on and from ladder, initial encounter
CPT/HCPCS: 36415; 70450; 71260; 72125; 72128; 72131; 74177; 80053; 80305; 81001; 82150; 82550; 82962; 83690; 84484; 85025; 85610; 85730; 93005; 96361; 96374; 96375; 96376; 99285; G0480; J1170; J2405; J3010; J7030; J7050; Q9967

== ENCOUNTER 2020-07-07 14:46 | Inpatient (IN) | payer MEDICARE, OTHER ==
--- NOTE | 2020-07-07 16:21 | CT ---
EXAMINATION: Chest wo Cont SEX: Male AGE: 74 years CLINICAL HISTORY: 74-year-old hypertensive 200 pound diabetic male with shortness of breath (COVID positive) reported to have "mild bronchitis and bibasilar platelike atelectasis with small nodule, posteriorly, LLL" on CT July 2018. Scan technique: Volume acquisition of data from the chest (bony thorax, lungs and mediastinum) obtained with patient lying supine on the Siemens multi slice scanner [place], [place]. All data archived in the PACS system for storage, reformatting axial/sagittal/coronal planes and study (lung/mediastinal windows). Interpretation: 1. Kyphosis, multilevel disc disease and hypertrophic spondylosis dorsal spine. 2. Calcifications. No aneurysm or dissection. 3. Patchy platelike atelectasis both lung bases and chronic peribronchial "cuffing" (bronchitis). 4. *No new signs of heart failure, lung mass, hilar lymphadenopathy or focal lobar pneumonia. 5. No pneumothorax or pneumomediastinum. Midline tracheal bronchial airway unremarkable. 6. Cholelithiasis. Unenhanced liver, stomach, spleen and pancreas unremarkable. CONCLUSION: No acute new cardiopulmonary abnormality. Cronic bronchitis and bibasilar atelectasis. Cholelithiasis.
--- NOTE | 2020-07-07 16:41 | EDM.PDOC ---
ED HPI GENERAL MEDICAL PROBLEM - General Chief Complaint: Fever Stated Complaint: AMBULANCE Time Seen by Provider: 07/07/20 16:36 Source of Information: Reports: Patient, RN, RN Notes Reviewed History Limitations: Reports: No Limitations - History of Present Illness INITIAL COMMENTS - FREE TEXT/NARRATIVE: Patient presents to the ED via personal vehicle with complaints of shortness of breath, fever, and cough. Per the patient his symptoms began last night, 07/06/20, prior to going to bed. He states his was tested for COVID two days ago, 07/04/20, and was negative; she is asymptomatic. He states his fever spiked this AM at 100.5. He does attest to shaking chills, fatigue, nausea and muscle aches. He denies headache, vomiting, diarrhea, dysuria, hematuria, or abdominal pain. He has not taken any medications for this problem. Generalized Pain Score (Numeric/FACES): 10 - Related Data Allergies Allergy/AdvReac Type Severity Reaction Status Date / Time Penicillins Allergy Anaphylactic Verified 07/07/20 15:15 Shock Home Meds: Home Meds Aspirin [Halfprin] 81 mg PO BEDTIME 10/01/14 [History] Metoprolol Tartrate [Lopressor] 25 mg PO Q12HR 10/01/14 [History] Simvastatin 40 mg PO BEDTIME 10/01/14 [History] Tiotropium [Spiriva Handihaler] 18 mcg PO DAILY 10/01/14 [History] amLODIPine Besylate [Amlodipine Besylate] 10 mg PO DAILY 10/01/14 [History] Isosorbide Mononitrate [Isosorbide Mononitrate ER] 30 mg PO .MORNING 10/08/14 [History] Montelukast Sodium [Singulair] 10 mg PO BEDTIME 10/08/14 [History] metFORMIN [Glucophage] 1,000 mg PO BID 12/06/14 [History] Pramipexole [Mirapex] 0.125 mg PO BEDTIME 06/29/18 [History] Trospium Chloride 20 mg PO BID 06/29/18 [History] Venlafaxine [Effexor XR] 150 mg PO DAILY 06/29/18 [History] glipiZIDE [Glucotrol XL] 5 mg PO DAILY 06/29/18 [History] Past Medical History HEENT History: Reports: Impaired Vision Cardiovascular History: Reports: CAD, High Cholesterol, Hypertension, Stents, Other (See Below) Respiratory History: Reports: Asthma Psychiatric History: Reports: Depression Endocrine/Metabolic History: Reports: Diabetes, Type II Oncologic (Cancer) History: Reports: Basal Cell Carcinoma Dermatologic History: Reports: Benign Melanoma Other Dermatologic History: basal cell carcinoma - Infectious Disease History Infectious Disease History: Reports: None - Past Surgical History Cardiovascular Surgical History: Reports: Coronary Artery Stent GI Surgical History: Reports: Hernia, Inguinal Other Musculoskeletal Surgeries/Procedures:: knee surgery and big toe surgery Other Oncologic Surgeries/Procedures: basal cell carcinoma Social & Family History - Family History Family Medical History: Noncontributory - Tobacco Use Tobacco Use Status *Q: Never Tobacco User - Caffeine Use Caffeine Use: Reports: Coffee - Recreational Drug Use Recreational Drug Use: No - Living Situation & Occupation Living situation: Reports: , with Spouse Occupation: Employed ED ROS GENERAL - Review of Systems Review Of Systems: Comprehensive ROS is negative, except as noted in HPI. ED EXAM, GENERAL - Physical Exam Exam: See Below Exam Limited By: No Limitations General Appearance: Alert, WD/WN, No Apparent Distress Throat/Mouth: Normal Inspection, Normal Lips, Normal Teeth, Normal Gums, Normal Oropharynx, Normal Voice, No Airway Compromise Head: Atraumatic, Normocephalic Neck: Normal Inspection, Supple, Non-Tender, Full Range of Motion Respiratory/Chest: Chest Non-Tender, Crackles, Rales, Rhonchi, Wheezing, Accessory Muscle Use Cardiovascular: Normal Peripheral Pulses, Regular Rate, Rhythm, No Edema, No Gallop, No Murmur, No Rub Peripheral Pulses: 2+: Radial (L), Radial (R) GI/Abdominal: Normal Bowel Sounds, Soft, Non-Tender, No Organomegaly, No Mass (Male) Exam: Deferred Rectal (Males) Exam: Deferred Back Exam: Normal Inspection, Full Range of Motion. No: CVA Tenderness (L), CVA Tenderness (R) Extremities: Normal Inspection, Normal Range of Motion, Non-Tender, No Pedal Edema, Normal Capillary Refill Neurological: Alert, Oriented, CN II-XII Intact Skin Exam: Warm, Dry, Intact. No: Ecchymosis, Erythema, Pallor, Petechiae, Rash Course - Vital Signs Last Recorded V/S: Last Vital Signs Temp 99.5 F 07/07/20 15:07 Pulse 75 07/07/20 15:07 Resp 18 07/07/20 15:07 BP 146/80 H 07/07/20 15:07 Pulse Ox 96 07/07/20 15:07 - Orders/Labs/Meds Orders: Active Orders 24 hr Category Date Time Status Admission Diagnosis [ADT] Urgent ADT 07/07/20 17:18 Ordered Patient Status [ADT] Routine ADT 07/07/20 17:18 Active CULTURE BLOOD [BC] Stat Lab 07/07/20 16:20 Received CULTURE BLOOD [BC] Stat Lab 07/07/20 16:20 Received Blood Culture x2 Reflex Set [OM.PC] Stat Oth 07/07/20 15:30 Ordered Labs: Laboratory Tests 07/07/20 07/07/20 07/07/20 Range/Units 14:48 16:20 16:20 WBC 7.1 (5.0-10.0) 10^3/uL RBC 5.07 (4.6-6.2) 10^6/uL Hgb 13.7 L (14.0-18.0) g/dL Hct 40.7 (40.0-54.0) % MCV 80.3 (80-100) fL MCH 27.0 (27.0-34.0) pg MCHC 33.7 (33.0-35.0) g/dL Plt Count 180 (150-450) 10^3/uL Neut % (Auto) 71.6 (42.2-75.2) % Lymph % (Auto) 10.5 L (20.5-50.1) % [place] % (Auto) 16.9 H (2-8) % Eos % (Auto) 0.7 L (1.0-3.0) % Baso % (Auto) 0.3 (0.0-1.0) % Sodium 138 (136-145) mmol/L Potassium 3.7 (3.5-5.1) mmol/L Chloride 102 (98-107) mmol/L Carbon Dioxide 27 (21-32) mmol/L Anion Gap 12.7 (7-13) mEq/L BUN 16 (7-18) mg/dL Creatinine 0.76 (0.70-1.30) mg/dL Est Cr Clr Drug Dosing TNP Estimated GFR (MDRD) > 60 BUN/Creatinine Ratio 21.1 (No establ ref range) Glucose 106 H (74-99) mg/dL Lactic Acid (0.4-2.0) mmol/L Calcium 8.6 (8.5-10.1) mg/dL Total Bilirubin 0.5 (0.2-1.0) mg/dL AST 12 L (15-37) U/L ALT 17 (16-63) U/L Alkaline Phosphatase 52 (46-116) U/L Total Protein 6.9 (6.4-8.2) g/dL Albumin 3.5 (3.4-5.0) g/dL Globulin 3.4 Albumin/Globulin Ratio 1.0 SARS CoV-2 RNA Rapid MARCELL Positive H (NEGATIVE) 07/07/20 Range/Units 16:20 WBC (5.0-10.0) 10^3/uL RBC (4.6-6.2) 10^6/uL Hgb (14.0-18.0) g/dL Hct (40.0-54.0) % MCV (80-100) fL MCH (27.0-34.0) pg MCHC (33.0-35.0) g/dL Plt Count (150-450) 10^3/uL Neut % (Auto) (42.2-75.2) % Lymph % (Auto) (20.5-50.1) % [place] % (Auto) (2-8) % Eos % (Auto) (1.0-3.0) % Baso % (Auto) (0.0-1.0) % Sodium (136-145) mmol/L Potassium (3.5-5.1) mmol/L Chloride (98-107) mmol/L Carbon Dioxide (21-32) mmol/L Anion Gap (7-13) mEq/L BUN (7-18) mg/dL Creatinine (0.70-1.30) mg/dL Est Cr Clr Drug Dosing Estimated GFR (MDRD) BUN/Creatinine Ratio (No establ ref range) Glucose (74-99) mg/dL Lactic Acid 1.1 (0.4-2.0) mmol/L Calcium (8.5-10.1) mg/dL Total Bilirubin (0.2-1.0) mg/dL AST (15-37) U/L ALT (16-63) U/L Alkaline Phosphatase (46-116) U/L Total Protein (6.4-8.2) g/dL Albumin (3.4-5.0) g/dL Globulin Albumin/Globulin Ratio SARS CoV-2 RNA Rapid MARCELL (NEGATIVE) - Re-Assessments/Exams Free Text/Narrative Re-Assessment/Exam: 07/07/20 17:22 Patient to be admitted to inpatient. Departure - Departure Time of Disposition: 17:23 Disposition: [facility] Condition: Good Clinical Impression: Shortness of breath with exposure to COVID-19 virus, COVID-19 - Discharge Information *PRESCRIPTION DRUG MONITORING PROGRAM REVIEWED*: Not Applicable *COPY OF PRESCRIPTION DRUG MONITORING REPORT IN PATIENT KALEB: Not Applicable Forms: ED Department Discharge Sepsis Event Note (ED) - Evaluation Sepsis Screening Result: No Definite Risk - Focused Exam Vital Signs: Vital Signs Temp Pulse Resp BP Pulse Ox 07/07/20 15:07 99.5 F 75 18 146/80 H 96 - My Orders Last 24 Hours: My Active Orders 07/07/20 15:30 Blood Culture x2 Reflex Set [OM.PC] Stat 07/07/20 16:20 CULTURE BLOOD [BC] Stat CULTURE BLOOD [BC] Stat 07/07/20 17:18 Admission Diagnosis [ADT] Urgent Patient Status [ADT] Routine - Assessment/Plan Last 24 Hours: My Active Orders 07/07/20 15:30 Blood Culture x2 Reflex Set [OM.PC] Stat 07/07/20 16:20 CULTURE BLOOD [BC] Stat CULTURE BLOOD [BC] Stat 07/07/20 17:18 Admission Diagnosis [ADT] Urgent Patient Status [ADT] Routine
[2020-07-07 16:48] LABS: ANION GAP 12.7 mEq/L (7-13); CHLORIDE,CL 102 mmol/L (98-107); SODIUM,NA 138 mmol/L (136-145)
[2020-07-07] MEDS ORDERED: Ondansetron 4 MG Tab.DIS PO PRN (18:02)
[2020-07-07] MEDS ORDERED: Docusate Sodium 100 MG Cap PO PRN (18:02)
[2020-07-07] MEDS ORDERED: 50% Dextrose in Water 50 ML Syringe IV PRN (18:10)
[2020-07-07] MEDS ORDERED: Glucagon,Human Recombinant 1 MG Vial IM PRN (18:10)
[2020-07-07] MEDS ORDERED: Levofloxacin/Dextrose 5%-Water 500 MG in Premix Bag 1 BAG IV ONE (19:00)
[2020-07-07] MEDS ORDERED: Water For Injection, Sterile 40 ML ONE (19:11)
[2020-07-07] MEDS: Isosorbide Mononitrate 30 MG Tab.ER PO SCH (19:20)
[2020-07-07] MEDS: Sodium Chloride 0.9% 1,000 ML IV SCH (19:53)
[2020-07-07] MEDS: Acetaminophen 325 MG Tab PO PRN (19:56)
[2020-07-07] MEDS: Aspirin 81 MG Tab.EC PO SCH ×2 (19:57→20:06)
[2020-07-07] MEDS: Montelukast 10 MG Tab PO SCH ×2 (19:57→20:06)
[2020-07-07] MEDS: Simvastatin 40 MG Tab PO SCH ×2 (19:58→20:06)
[2020-07-07] MEDS: Pramipexole 0.125 MG Tab PO SCH (19:59)
[2020-07-07] MEDS: Metoprolol Tartrate 25 MG Tab PO SCH (20:00)
[2020-07-07] MEDS: Albuterol/Ipratropium 3.0-0.5 MG/3 ML Neb Soln NEB SCH (20:01)
--- NOTE | 2020-07-07 22:14 | HP ---
CHIEF COMPLAINT: Fever and chills. HISTORY OF PRESENT ILLNESS: The patient is a 74-year-old gentleman with past medical history of coronary artery disease status post stent placement, asthma, type 2 diabetes mellitus, depression, hypertension was admitted through the emergency room because patient was complaining of shortness of breath, fever and cough, and this started all yesterday. The patient also mentioned that his fever spiked at about 100.5 this morning, and he was also feeling nauseous and fatigued. Because of this, he came into the emergency room and he got tested for COVID-19 and it was positive. His oxygen saturation was also 92% on room air, and because of his comorbid condition, he was then admitted for further evaluation and management. REVIEW OF SYSTEMS: The patient denies any diarrhea, loss of sense of taste or smell. Denies any chest pain, orthopnea, PND, nor any other complaints. PAST MEDICAL HISTORY: As in HPI. FAMILY HISTORY: Noncontributory. SOCIAL HISTORY: Patient is . Nonsmoker, nonalcohol drinker. HOME MEDICATIONS: Aspirin, metoprolol, simvastatin, Spiriva, amlodipine, Imdur, montelukast, metformin, Mirapex, trospium, Effexor, and glipizide. ALLERGIES: Penicillin (anaphylactic shock). PHYSICAL EXAMINATION: General: The patient is alert and oriented, in mild respiratory distress. Vital Signs: Blood pressure is 146/80, pulse of 75, respirations 18, temperature of 99.5, saturation is 96% on 2 L per nasal cannula. SHEENT: Normocephalic. There are pink palpebral conjunctivae. Sclerae anicteric. Neck: No JVD. No lymphadenopathy. Heart: Regular rate and rhythm. Normal S1 and S2. No gallops. No rubs. Lungs: Equal bilaterally. No crackles, but there are coarse breath sounds bilaterally and scattered expiratory wheezes bilaterally. Abdomen: Obese, soft, nontender. Bowel sounds positive. Extremities: Negative for any pedal edema. No calf tenderness. LABORATORY WORKUP: CBC: WBC is 7.1, hemoglobin is 13.7, hematocrit is 40.7, platelets 180. Comp panel: Glucose is 106. The rest of the comp panel unremarkable. Lactic acid is 1.1. SARS-CoV-2 is positive. CAT scan of the chest, official reading showed chronic bronchitis and bibasilar atelectasis. ADMITTING DIAGNOSES: 1. COVID-19 infection. 2. Chronic obstructive pulmonary disease exacerbation. 3. Coronary artery disease. 4. Type 2 diabetes mellitus. TREATMENT PLAN: The patient is going to be admitted to isolation. He will be empirically started on remdesivir as well as dexamethasone. He will also be put on IV antibiotics. He will be on sliding scale and also DVT prophylaxis and the rest of the management as necessary. The patient is code level 2 that is DNR/DNI as per his wishes. [facility] /[id number]
[2020-07-08] MEDS: Acetaminophen 325 MG Tab PO PRN (03:14)
[2020-07-08] MEDS: Insulin Lispro 100 Units/ML 3 ML Vial SUBCUT SCH ×3 (08:36→17:35)
[2020-07-08] MEDS: Budesonide 0.5 MG/2 ML Neb Susp NEB SCH ×2 (08:36→17:38)
[2020-07-08] MEDS: Albuterol/Ipratropium 3.0-0.5 MG/3 ML Neb Soln NEB SCH (08:37)
[2020-07-08] MEDS ORDERED: glipiZIDE 5 MG Tab.ER PO SCH (09:00)
[2020-07-08] MEDS: Sodium Chloride 0.9% 1,000 ML IV SCH (09:24)
[2020-07-08] MEDS: Albuterol 6.7 GM Inhaler INH SCH ×3 (09:29→17:38)
[2020-07-08] MEDS: Venlafaxine 150 MG CAP.ER PO SCH (09:30)
[2020-07-08] MEDS: Enoxaparin 40 MG/0.4 ML Syringe SUBCUT SCH (09:30)
[2020-07-08] MEDS: Metoprolol Tartrate 25 MG Tab PO SCH (09:31)
[2020-07-08] MEDS: Isosorbide Mononitrate 30 MG Tab.ER PO SCH (09:31)
[2020-07-08] MEDS: Dexamethasone 4 MG/ML SDV IVPUSH SCH (09:32)
--- NOTE | 2020-07-08 10:50 | PN ---
DATE: 07/08/2020 SUBJECTIVE: The patient is still complaining of feeling weak and tired and still slightly short of breath but overall he is feeling slightly better when compared to yesterday. He is also complaining of some loose stools, but he denies any chest pain, palpitations, abdominal pain, nor any other complaints. OBJECTIVE: Vital Signs: Blood pressure is 124/67, pulse of 59, respirations of 22, temperature of 99.6, saturation is 96% on 2 L per nasal cannula. Heart: Regular rate and rhythm. No gallops. No rubs. Lungs: Has diminished breath sounds on both bases with coarse breath sounds, but wheezing has improved when compared to yesterday. No significant crackles. Abdomen: Obese, soft, nontender. Bowel sounds positive. Extremities: Negative for any significant pedal edema. No calf tenderness. MEDICATIONS: Reviewed. PLAN: We will continue with his current regimen and continue with IV dexamethasone and IV Levaquin and Remdesivir. [facility] /[id number]
[2020-07-08] MEDS: LORazepam 0.5 MG Tab PO PRN ×2 (12:19→21:14)
[2020-07-08] MEDS ORDERED: Loperamide 2 MG Cap PO PRN (13:19)
[2020-07-08] MEDS: Carvedilol 25 MG Tab PO SCH (17:37)
[2020-07-08] MEDS: Levofloxacin/Dextrose 5%-Water 500 MG in Premix Bag 1 BAG IV SCH (21:06)
[2020-07-08] MEDS: Aspirin 81 MG Tab.EC PO SCH (21:14)
[2020-07-08] MEDS: Pramipexole 0.125 MG Tab PO SCH (21:15)
[2020-07-08] MEDS: Simvastatin 40 MG Tab PO SCH (21:15)
[2020-07-08] MEDS: Gabapentin 300 MG Cap PO SCH (21:15)
[2020-07-08] MEDS: Montelukast 10 MG Tab PO SCH (21:15)
[2020-07-08] MEDS: Donepezil 10 MG Tab PO SCH (21:16)
[2020-07-08] MEDS: Tamsulosin 0.4 MG Cap.ER PO SCH (21:16)
[2020-07-09] MEDS: Albuterol 6.7 GM Inhaler INH SCH ×5 (00:07→23:25)
[2020-07-09 06:53] LABS: ANION GAP 12.6 mEq/L (7-13); CHLORIDE,CL 107 mmol/L (98-107); SODIUM,NA 143 mmol/L (136-145)
[2020-07-09] MEDS: Budesonide 0.5 MG/2 ML Neb Susp NEB SCH ×2 (09:06→17:11)
[2020-07-09] MEDS: Carvedilol 25 MG Tab PO SCH ×2 (09:10→17:09)
[2020-07-09] MEDS: Dexamethasone 4 MG/ML SDV IVPUSH SCH (09:12)
[2020-07-09] MEDS: Insulin Lispro 100 Units/ML 3 ML Vial SUBCUT SCH ×3 (09:12→17:08)
[2020-07-09] MEDS: glipiZIDE 5 MG Tab.ER PO SCH (09:13)
[2020-07-09] MEDS: Enoxaparin 40 MG/0.4 ML Syringe SUBCUT SCH (09:13)
[2020-07-09] MEDS: Lisinopril 20 MG Tab PO SCH (09:14)
[2020-07-09] MEDS: Gabapentin 300 MG Cap PO SCH ×2 (09:14→22:10)
[2020-07-09] MEDS: Venlafaxine 150 MG CAP.ER PO SCH (09:15)
[2020-07-09] MEDS: Pantoprazole 40 MG Tab.CR PO SCH (09:15)
--- NOTE | 2020-07-09 12:31 | PN ---
DATE: 07/09/2020 SUBJECTIVE: The patient yesterday was started on Ativan as needed because of his anxiety symptoms and he felt much better after this. This morning, he is feeling much better and still has some coughing spells, but oxygen saturation has improved. The patient denies any chest pain. Denies any fever, chills, abdominal pain, nor any other significant complaints. LABORATORY WORKUP: This morning. CBC: WBC is 5.6, hemoglobin is 12.4, hematocrit is 37.7, platelets are 153. Chem-6: BUN is 19, glucose is 107, and the rest of the comp panel is unremarkable. C-reactive protein and LDH are within normal limits. OBJECTIVE: Vital Signs: Blood pressure is 156/65, pulse 63, respirations 18, temperature of 97.6, saturation is 96% on room air. Heart: Regular rate and rhythm. Normal S1 and S2. No gallops. No rubs. Lungs: Still remarkable for some rhonchi, more in the right lung field, but no significant wheezing. Abdomen: Obese, soft, nontender. Extremities: Negative for any significant pedal edema. No calf tenderness. MEDICATIONS: Reviewed. PLAN: We will continue with his present management. [facility] /[id number]
[2020-07-09] MEDS: Aspirin 81 MG Tab.EC PO SCH (22:10)
[2020-07-09] MEDS: Simvastatin 40 MG Tab PO SCH (22:10)
[2020-07-09] MEDS: Donepezil 10 MG Tab PO SCH (22:10)
[2020-07-09] MEDS: Tamsulosin 0.4 MG Cap.ER PO SCH (22:11)
[2020-07-09] MEDS: Montelukast 10 MG Tab PO SCH (22:11)
[2020-07-09] MEDS: LORazepam 0.5 MG Tab PO PRN (22:11)
[2020-07-09] MEDS: Pramipexole 0.125 MG Tab PO SCH (22:11)
[2020-07-09] MEDS: Levofloxacin/Dextrose 5%-Water 500 MG in Premix Bag 1 BAG IV SCH (22:13)
[2020-07-10] MEDS: Albuterol 6.7 GM Inhaler INH SCH ×4 (05:54→23:06)
[2020-07-10] MEDS: Budesonide 0.5 MG/2 ML Neb Susp NEB SCH ×2 (07:58→17:27)
[2020-07-10] MEDS: glipiZIDE 5 MG Tab.ER PO SCH (08:04)
[2020-07-10] MEDS: Pantoprazole 40 MG Tab.CR PO SCH (08:05)
[2020-07-10] MEDS: Dexamethasone 4 MG/ML SDV IVPUSH SCH (08:05)
[2020-07-10] MEDS: Enoxaparin 40 MG/0.4 ML Syringe SUBCUT SCH (08:07)
[2020-07-10] MEDS: Lisinopril 20 MG Tab PO SCH (08:12)
[2020-07-10] MEDS: Carvedilol 25 MG Tab PO SCH ×2 (08:12→17:30)
[2020-07-10] MEDS: Venlafaxine 150 MG CAP.ER PO SCH (08:12)
[2020-07-10] MEDS: Insulin Lispro 100 Units/ML 3 ML Vial SUBCUT SCH ×3 (08:13→17:23)
[2020-07-10] MEDS: Gabapentin 300 MG Cap PO SCH ×2 (08:15→21:26)
[2020-07-10] MEDS ORDERED: Water For Injection, Sterile 20 ML ONE (08:29)
--- NOTE | 2020-07-10 09:37 | PN ---
DATE: 07/10/2020 SUBJECTIVE: The patient this morning is doing well, is feeling much better. The patient denies any worsening of shortness of breath. Denies any chest pain, abdominal pain, fever, chills, nor any other complaints. OBJECTIVE: Vital Signs: Blood pressure is 144/70, pulse of 58, respirations of 18, temperature of 97.6, saturation is 98% on room air. Heart: Regular rate and rhythm. Normal S1 and S2. No gallops. No rubs. Lungs: Have coarse breath sounds on the right lung field, but no significant crackles, no wheezing. Abdomen: Obese, soft, nontender. Bowel sounds positive. Extremities: Negative for any pedal edema. No calf tenderness. MEDICATIONS: Reviewed. LABORATORY DATA: Lab workup this morning: Glucose is 126. Liver function test is unremarkable. PLAN: We will continue with his present management. If he continues to do well, anticipate discharge in a.m. [facility] /[id number]
[2020-07-10] MEDS: Sodium Chloride 0.9% 10 ML Syringe IV SCH (09:58)
[2020-07-10] MEDS: Levofloxacin/Dextrose 5%-Water 500 MG in Premix Bag 1 BAG IV SCH (20:11)
[2020-07-10] MEDS: Pramipexole 0.125 MG Tab PO SCH (21:26)
[2020-07-10] MEDS: Aspirin 81 MG Tab.EC PO SCH (21:26)
[2020-07-10] MEDS: Simvastatin 40 MG Tab PO SCH (21:26)
[2020-07-10] MEDS: Donepezil 10 MG Tab PO SCH (21:27)
[2020-07-10] MEDS: Tamsulosin 0.4 MG Cap.ER PO SCH (21:27)
[2020-07-10] MEDS: LORazepam 0.5 MG Tab PO PRN (21:27)
[2020-07-10] MEDS: Montelukast 10 MG Tab PO SCH (21:27)
[2020-07-11] MEDS: Budesonide 0.5 MG/2 ML Neb Susp NEB SCH (06:13)
[2020-07-11] MEDS: Albuterol 6.7 GM Inhaler INH SCH (06:13)
[2020-07-11] MEDS: Pantoprazole 40 MG Tab.CR PO SCH ×2 (07:58→10:08)
[2020-07-11] MEDS: Carvedilol 25 MG Tab PO SCH (07:58)
[2020-07-11] MEDS: Venlafaxine 150 MG CAP.ER PO SCH (08:01)
[2020-07-11] MEDS: glipiZIDE 5 MG Tab.ER PO SCH (08:01)
[2020-07-11] MEDS: Lisinopril 20 MG Tab PO SCH (08:02)
[2020-07-11] MEDS: Gabapentin 300 MG Cap PO SCH (08:02)
[2020-07-11] MEDS: Enoxaparin 40 MG/0.4 ML Syringe SUBCUT SCH (08:03)
[2020-07-11] MEDS: Dexamethasone 4 MG/ML SDV IVPUSH SCH (08:04)
[2020-07-11] MEDS: Insulin Lispro 100 Units/ML 3 ML Vial SUBCUT SCH ×2 (08:06→12:15)
[2020-07-11 08:07] VITALS: PULSE 51
[2020-07-11 08:52] VITALS: BP 169/82
--- NOTE | 2020-07-11 08:56 | DISCH ---
FINAL DIAGNOSES: 1. Coronavirus disease-19 infection. 2. Chronic obstructive pulmonary disease exacerbation. 3. Coronary artery disease. 4. Type 2 diabetes mellitus. 5. Hypertension. BRIEF HISTORY OF PRESENT ILLNESS: Please see H and P. PERTINENT LAB, X-RAY, AND OTHER TESTS ON ADMISSION: See H and P. CAT scan of the chest showed chronic bronchitis and bibasilar atelectasis and cholelithiasis. Blood cultures negative. HOSPITAL COURSE: The patient was admitted to acute care isolation. He was empirically started on IV antibiotic with Levaquin and was started on dexamethasone IV and also remdesivir, and he was placed on DVT prophylaxis and he was resumed on some of his home medication. The patient responded well with the above regimen, but during the hospitalization, the patient was admitted to be very anxious, so he was started on Ativan and this did help a lot with his anxiety. Hospital course basically was unremarkable except for some elevation of the blood sugar, which was covered by sliding scale insulin and this is also partly because of the patient's dexamethasone. Blood pressure was also running slightly elevated because the patient's Lasix was held. The rest of the hospital course was unremarkable and he was subsequently discharged. CONDITION ON DISCHARGE: Improved. DISCHARGE INSTRUCTIONS: He will continue with Levaquin for the next 5 days and continue with dexamethasone orally for the next 5 days and we will also give him some Ativan as needed for his anxiety. We will resume his home medication and he is going to follow up with Sarah Felder in 10 to 14 days. [facility] /[id number]
--- NOTE | 2020-07-11 08:56 | PN ---
DATE: 07/11/2020 SUBJECTIVE: The patient continues to do well. He is feeling much better. He denies any shortness of breath, chest pain, fever, chills, nor any other complaints, and he is ready to go home. Blood sugar running slightly elevated as well as the blood pressure. LABORATORY DATA: Lab workup this morning, glucose level is 160. OBJECTIVE: Vital Signs: Blood pressure is 168/85, pulse of 51, respiration of 20, temperature of 98, saturation is 97% on room air. Heart: Regular rate and rhythm. Normal S1 and S2. No gallops. No rubs. Lungs: Equal bilaterally. No crackles, no wheezing. Abdomen: Obese, soft, nontender. Bowel sounds positive. Extremities: Negative for any pedal edema. No calf tenderness. MEDICATIONS: Reviewed. PLAN: We will discharge the patient home today. We will continue with Levaquin for the next 5 days and continue with dexamethasone orally for the next 5 days. We will also resume his previous home medication. He is going to follow up with Sarah Felder in 10 days. [facility] /[id number]
[2020-07-11] MEDS: Sodium Chloride 0.9% 10 ML Syringe IV SCH (12:19)
== END 2020-07-11 13:20 | disposition home or self-care (01) | DRG 178 ==
LOC: DL.ED 14:46 → DL.MS 17:18
PROVIDERS: ADMIT Internal Medicine; ATTEND Internal Medicine
PROC: 8E0ZXY6 Isolation (ICD-10-PCS; principal; 2020-07-07)
PROC: XW033E5 Introduction of Remdesivir Anti-infective into Peripheral Vein, Percutaneous Approach, New Technology Group 5 (ICD-10-PCS; 2020-07-07)
DX: U07.1 COVID-19 (principal); J44.1 Chronic obstructive pulmonary disease with (acute) exacerbation; I25.10 Atherosclerotic heart disease of native coronary artery without angina pectoris; E11.9 Type 2 diabetes mellitus without complications; I10 Essential (primary) hypertension; Z66 Do not resuscitate; F41.9 Anxiety disorder, unspecified; J45.909 Unspecified asthma, uncomplicated; F32.9 Major depressive disorder, single episode, unspecified; H54.7 Unspecified visual loss; E78.00 Pure hypercholesterolemia, unspecified; Z85.3 Personal history of malignant neoplasm of breast; Z95.5 Presence of coronary angioplasty implant and graft; Z79.82 Long term (current) use of aspirin; Z79.899 Other long term (current) drug therapy; Z79.84 Long term (current) use of oral hypoglycemic drugs; Z88.0 Allergy status to penicillin; Z85.820 Personal history of malignant melanoma of skin; Z98.890 Other specified postprocedural states
CPT/HCPCS: 36415; 71250; 80053; 83605; 83615; 84145; 85025; 85379; 86140; 87040 ×2; 99285; U0002; 80048; 80076; 82962; 83880; 94640; 94760; 99284; A9270-GY; J1100; J1650; J1815-GY; J1956; J7030; J7050; J7620-GY

== ENCOUNTER 2021-02-11 15:38 | Emergency (ER) | payer MEDICARE, OTHER ==
[2021-02-11 16:10] VITALS: BP 169/81; PULSE 68
--- NOTE | 2021-02-11 17:11 | CT ---
PROCEDURE INFORMATION: Exam: CT Head Without Contrast Exam date and time: 02/11/2021 4:51 PM Age: 75 years old Clinical indication: Altered mental status/memory loss; Additional info: Confusion, difficult speech, right temporal pain TECHNIQUE: Imaging protocol: Computed tomography of the head without contrast. Total images: 159 Radiation optimization: All CT scans at this facility use at least one of these dose optimization techniques: automated exposure control; mA and/or kV adjustment per patient size (includes targeted exams where dose is matched to clinical indication); or iterative reconstruction. COMPARISON: CT Head wo Cont 06/29/2018 5:55 PM FINDINGS: Brain: Deep white matter hypodensity compatible with chronic small vessel ischemic change. Calcification along the right tentorium is unchanged. Cerebral ventricles: No ventriculomegaly. Bones/joints: Unremarkable. No acute fracture. Paranasal sinuses: Moderate to marked mucosal thickening left maxillary sinus. Mastoid air cells: Visualized mastoid air cells are well aerated. Soft tissues: Unremarkable. IMPRESSION: No acute intracranial process.
--- NOTE | 2021-02-11 17:18 | CR ---
PROCEDURE INFORMATION: Exam: XR Chest Exam date and time: 02/11/2021 5:00 PM Age: 75 years old Clinical indication: Other: Chest pain TECHNIQUE: Imaging protocol: XR of the chest. Views: 1 view. Total images: 1 COMPARISON: CT Chest wo Cont 07/07/2020 3:49 PM FINDINGS: Lungs: Minimal hazy opacity lung bases accentuated by overlying soft tissues. Pleural spaces: Unremarkable. No pleural effusion. No pneumothorax. Heart/Mediastinum: Borderline cardiomegaly. Bones/joints: Sternotomy wires. IMPRESSION: Haziness projecting over the lower lungs may reflect overlying soft tissues although difficult to completely exclude underlying atelectasis/infiltrate especially at the left base.
[2021-02-11 17:22] LABS: ANION GAP 14.7 mEq/L (7-13); CHLORIDE,CL 103 mmol/L (98-107); SODIUM,NA 139 mmol/L (136-145)
--- NOTE | 2021-02-12 10:13 | EDM.PDOC ---
Scribed by Maria Esther Douglas 02/11/21 1953 for Kristi Pandey NP ED HPI GENERAL MEDICAL PROBLEM - General Chief Complaint: Neuro Symptoms/Deficits Stated Complaint: LUMP ON HEAD CONFUSED,SHAKY,TROUBLE TALKING,WALKIN Time Seen by Provider: 02/11/21 16:24 Source of Information: Reports: Patient, RN, RN Notes Reviewed History Limitations: Reports: No Limitations - History of Present Illness INITIAL COMMENTS - FREE TEXT/NARRATIVE: Patient is a 75-year-old male who presents to ER with with complaint that balance is off, difficulty with speech beginning today. noticed today at work. Patient is a diabetic. He did have a circumcision last week. States yesterday he was "ranting and raving" and had "a bad day". He did not know why. He was diagnosed with dementia "quite a while ago". Patient has a headache, anorexia, chills and runny nose. He has had no jaw pain or tightness. No fatigue, fever, sore throat, cough, or URI symptoms. Onset: Gradual Duration: Getting Worse Location: Reports: Head Severity: Moderate Improves with: Reports: None Worsens with: Reports: None Associated Symptoms: Reports: No Other Symptoms Right Jaw Pain Score (Numeric/FACES): 8 - Related Data Allergies Allergy/AdvReac Type Severity Reaction Status Date / Time Penicillins Allergy Anaphylactic Verified 02/11/21 16:10 Shock Home Meds: Home Meds Acetaminophen [Tylenol] 650 mg PO Q4HR PRN 07/08/20 [History] Albuterol [Proventil HFA] 2 puff INH Q4HR PRN 07/08/20 [History] Aspirin [Halfprin] 81 mg PO DAILY 07/08/20 [History] Donepezil HCl 10 mg PO BEDTIME 07/08/20 [History] Fluticasone/Vilanterol [Breo Ellipta 200-25 MCG Inhalation Kit] 1 puff INH DAILY 07/08/20 [History] Furosemide 40 mg PO BID 07/08/20 [History] Gabapentin [Neurontin] 300 mg PO BID 07/08/20 [History] Pantoprazole Sodium [Protonix] 40 mg PO DAILY 07/08/20 [History] Pramipexole [Mirapex] 0.125 mg PO BEDTIME PRN 07/08/20 [History] Simvastatin 40 mg PO BEDTIME 07/08/20 [History] Tamsulosin [Flomax] 0.4 mg PO BEDTIME 07/08/20 [History] Tiotropium [Spiriva HandiHaler] 18 mcg INH DAILY 07/08/20 [History] Trospium Chloride 20 mg PO BIDAC 07/08/20 [History] Venlafaxine [Effexor XR] 150 mg PO DAILY 07/08/20 [History] carvediloL [Carvedilol] 12.5 mg PO BIDMEALS 07/08/20 [History] glipiZIDE [Glucotrol] 2.5 mg PO DAILY 07/08/20 [History] lisinopriL [Lisinopril] 20 mg PO DAILY 07/08/20 [History] metFORMIN [Glucophage] 1,000 mg PO BIDMEALS 07/08/20 [History] LORazepam [Ativan] 0.5 mg PO BID PRN 10 Days #10 tablet 07/11/20 [Rx] Levofloxacin [Levaquin] 500 mg PO DAILY 5 Days #5 tablet 07/11/20 [Rx] dexAMETHasone [Dexamethasone] 6 mg PO DAILY 5 Days #5 tab 07/11/20 [Rx] Past Medical History HEENT History: Reports: Hard of Hearing, Impaired Vision Other HEENT History: wears glasses Cardiovascular History: Reports: CAD, High Cholesterol, Hypertension, Stents, Other (See Below) Respiratory History: Reports: Asthma Gastrointestinal History: Reports: None Genitourinary History: Reports: None Musculoskeletal History: Reports: None Neurological History: Reports: Alzheimers Disease Psychiatric History: Reports: Depression Endocrine/Metabolic History: Reports: Diabetes, Type II Hematologic History: Reports: Anesthesia Reaction Immunologic History: Reports: None Oncologic (Cancer) History: Reports: Basal Cell Carcinoma Dermatologic History: Reports: Benign Melanoma Other Dermatologic History: basal cell carcinoma - Infectious Disease History Infectious Disease History: Reports: Novel Coronavirus - Past Surgical History Cardiovascular Surgical History: Reports: Coronary Artery Stent Respiratory Surgical History: Reports: None GI Surgical History: Reports: Hernia, Inguinal Other GI Surgeries/Procedures: multiple hernia repairs Male Surgical History: Reports: Circumcision Other Male Surgeries/Procedures: circumcision week and 3 days ago Endocrine Surgical History: Reports: None Musculoskeletal Surgical History: Reports: Knee Replacement Other Musculoskeletal Surgeries/Procedures:: knee surgery and big toe surgery Other Oncologic Surgeries/Procedures: basal cell carcinoma Social & Family History - Family History Family Medical History: No Pertinent Family History - Tobacco Use Tobacco Use Status *Q: Never Tobacco User Second Hand Smoke Exposure: No - Caffeine Use Caffeine Use: Reports: Coffee - Recreational Drug Use Recreational Drug Use: No - Living Situation & Occupation Living situation: Reports: , with Spouse Occupation: Employed ED ROS GENERAL - Review of Systems Review Of Systems: Comprehensive ROS is negative, except as noted in HPI. ED EXAM, NEURO - Physical Exam Exam: See Below Exam Limited By: No Limitations General Appearance: Alert, Anxious Eye Exam: Bilateral Eye: EOMI, Normal Inspection, PERRL Ears: Normal External Exam, Normal Canal, Hearing Grossly Normal, Normal TMs Nose: Normal Inspection, Normal Mucosa, No Blood Throat/Mouth: Normal Inspection, Normal Lips, Normal Teeth, Normal Gums, Normal Oropharynx, Normal Voice, No Airway Compromise Head Exam: Other (face tender right temporal area. ) Neck: Normal Inspection, Supple, Non-Tender, Full Range of Motion Respiratory/Chest: Rhonchi (throughout) Cardiovascular: Normal Peripheral Pulses, Regular Rate, Rhythm, No Edema, No Gallop, No JVD, No Murmur, No Rub GI/Abdominal: Normal Bowel Sounds, Soft, Non-Tender, No Organomegaly, No Distention, No Abnormal Bruit, No Mass (Male) Exam: Deferred Rectal (Males) Exam: Deferred Neurological: Alert, Normal Mood/Affect, Normal Dorsiflexion, CN II-XII Intact, Normal Plantar Flexion, Normal Gait, Normal Reflexes, No Motor/Sensory Deficits, Oriented x 3 Back Exam: Normal Inspection, Full Range of Motion, NT Extremities: Normal Inspection, Normal Range of Motion, Non-Tender, No Pedal Edema, Normal Capillary Refill Psychiatric: Anxious Skin Exam: Warm, Dry, Intact, Normal Color, No Rash #1 Interpretation EKG Date: 02/11/21 Time: 17:10 Rhythm: Other (junctional rhythm) Rate (Beats/Min): 69 EKG Interpretation Comments: minimal ST depression, lateral leads. Baseline wander in lead (s) I, II, aVR, aVF, V Course - Vital Signs Last Recorded V/S: Last Vital Signs Temp 96.7 F L 02/11/21 16:01 Pulse 68 05/21/21 16:01 Resp 16 02/11/21 16:01 BP 169/81 H 02/11/21 16:01 Pulse Ox 99 02/11/21 16:01 - Orders/Labs/Meds Labs: Laboratory Tests 02/11/21 02/11/21 02/11/21 Range/Units 16:55 16:55 16:55 WBC 13.7 H (5.0-10.0) 10^3/uL RBC 5.15 (4.6-6.2) 10^6/uL Hgb 14.0 D (14.0-18.0) g/dL Hct 41.7 (40.0-54.0) % MCV 81.0 (80-100) fL MCH 27.2 (27.0-34.0) pg MCHC 33.6 (33.0-35.0) g/dL Plt Count 258 D (150-450) 10^3/uL Neut % (Auto) 77.3 H (42.2-75.2) % Lymph % (Auto) 13.8 L (20.5-50.1) % Story % (Auto) 6.7 (2-8) % Eos % (Auto) 2.0 (1.0-3.0) % Baso % (Auto) 0.2 (0.0-1.0) % ESR 6 (0-15) mm/hr PT 11.8 (9.0-12.0) SEC INR 1.2 (0.9-1.2) Sodium 139 (136-145) mmol/L Potassium 3.7 (3.5-5.1) mmol/L Chloride 103 (98-107) mmol/L Carbon Dioxide 25 (21-32) mmol/L Anion Gap 14.7 H (7-13) mEq/L BUN 18 (7-18) mg/dL Creatinine 0.85 (0.70-1.30) mg/dL Est Cr Clr Drug Dosing 62.88 mL/min Estimated GFR (MDRD) > 60 BUN/Creatinine Ratio 21.2 (No establ ref range) Glucose 105 H (70-99) mg/dL Calcium 8.6 (8.5-10.1) mg/dL Total Bilirubin 0.5 (0.2-1.0) mg/dL AST 13 L (15-37) U/L ALT 23 (16-63) U/L Alkaline Phosphatase 61 (46-116) U/L C-Reactive Protein 0.8 (0.0-0.9) mg/dL Total Protein 7.0 (6.4-8.2) g/dL Albumin 3.4 (3.4-5.0) g/dL Globulin 3.6 Albumin/Globulin Ratio 0.9 Urine Color (YELLOW) Urine Appearance (CLEAR) Urine pH (5.0-9.0) Ur Specific [place] (1.005-1.030) Urine Protein (NEGATIVE) Urine Glucose (UA) (NEGATIVE) Urine Ketones (NEGATIVE) Urine Occult Blood (NEGATIVE) Urine Nitrite (NEGATIVE) Urine Bilirubin (NEGATIVE) Urine Urobilinogen (0.2-1.0) mg/dL Ur Leukocyte Esterase (NEGATIVE) Urine RBC /HPF Urine WBC (0-5/HPF) /HPF Ur Epithelial Cells (NOT SEEN) /HPF Urine Bacteria (0-FEW/HPF) /HPF Urine Opiates Screen (NEGATIVE) Ur Oxycodone Screen (NEGATIVE) Urine Methadone Screen (NEGATIVE) Ur Barbiturates Screen (NEGATIVE) U Tricyclic Antidepress (NEGATIVE) Ur Phencyclidine Scrn (NEGATIVE) Ur Amphetamine Screen (NEGATIVE) U Methamphetamines Scrn (NEGATIVE) Urine MDMA Screen (NEGATIVE) U Benzodiazepines Scrn (NEGATIVE) Urine Cocaine Screen (NEGATIVE) U Marijuana (THC) Screen (NEGATIVE) Ethyl Alcohol < 3 (0) mg/dL 02/11/21 02/11/21 Range/Units 17:55 17:55 WBC (5.0-10.0) 10^3/uL RBC (4.6-6.2) 10^6/uL Hgb (14.0-18.0) g/dL Hct (40.0-54.0) % MCV (80-100) fL MCH (27.0-34.0) pg MCHC (33.0-35.0) g/dL Plt Count (150-450) 10^3/uL Neut % (Auto) (42.2-75.2) % Lymph % (Auto) (20.5-50.1) % Story % (Auto) (2-8) % Eos % (Auto) (1.0-3.0) % Baso % (Auto) (0.0-1.0) % ESR (0-15) mm/hr PT (9.0-12.0) SEC INR (0.9-1.2) Sodium (136-145) mmol/L Potassium (3.5-5.1) mmol/L Chloride (98-107) mmol/L Carbon Dioxide (21-32) mmol/L Anion Gap (7-13) mEq/L BUN (7-18) mg/dL Creatinine (0.70-1.30) mg/dL Est Cr Clr Drug Dosing mL/min Estimated GFR (MDRD) BUN/Creatinine Ratio (No establ ref range) Glucose (70-99) mg/dL Calcium (8.5-10.1) mg/dL Total Bilirubin (0.2-1.0) mg/dL AST (15-37) U/L ALT (16-63) U/L Alkaline Phosphatase (46-116) U/L C-Reactive Protein (0.0-0.9) mg/dL Total Protein (6.4-8.2) g/dL Albumin (3.4-5.0) g/dL Globulin Albumin/Globulin Ratio Urine Color Yellow (YELLOW) Urine Appearance Clear (CLEAR) Urine pH 6.0 (5.0-9.0) Ur Specific [place] 1.020 (1.005-1.030) Urine Protein Negative (NEGATIVE) Urine Glucose (UA) Negative (NEGATIVE) Urine Ketones Negative (NEGATIVE) Urine Occult Blood Trace-intact H (NEGATIVE) Urine Nitrite Negative (NEGATIVE) Urine Bilirubin Negative (NEGATIVE) Urine Urobilinogen 0.2 (0.2-1.0) mg/dL Ur Leukocyte Esterase Negative (NEGATIVE) Urine RBC 0-5 /HPF Urine WBC 0-5 (0-5/HPF) /HPF Ur Epithelial Cells Not seen (NOT SEEN) /HPF Urine Bacteria Rare (0-FEW/HPF) /HPF Urine Opiates Screen Negative (NEGATIVE) Ur Oxycodone Screen Negative (NEGATIVE) Urine Methadone Screen Negative (NEGATIVE) Ur Barbiturates Screen Negative (NEGATIVE) U Tricyclic Antidepress Negative (NEGATIVE) Ur Phencyclidine Scrn Negative (NEGATIVE) Ur Amphetamine Screen Negative (NEGATIVE) U Methamphetamines Scrn Negative (NEGATIVE) Urine MDMA Screen Negative (NEGATIVE) U Benzodiazepines Scrn Negative (NEGATIVE) Urine Cocaine Screen Negative (NEGATIVE) U Marijuana (THC) Screen Negative (NEGATIVE) Ethyl Alcohol (0) mg/dL - Radiology Interpretation Free Text/Narrative:: Head CT wo contrast: PROCEDURE INFORMATION: Exam: CT Head Without Contrast Exam date and time: 02/11/2021 4:51 PM Age: 75 years old Clinical indication: Altered mental status/memory loss; Additional info: Confusion, difficult speech, right temporal pain TECHNIQUE: Imaging protocol: Computed tomography of the head without contrast. Total images: 159 Radiation optimization: All CT scans at this facility use at least one of these dose optimization techniques: automated exposure control; mA and/or kV adjustment per patient size (includes targeted exams where dose is matched to clinical indication); or iterative reconstruction. COMPARISON: CT Head wo Cont 06/29/2018 5:55 PM FINDINGS: Brain: Deep white matter hypodensity compatible with chronic small vessel ischemic change. Calcification along the right tentorium is unchanged. Cerebral ventricles: No ventriculomegaly. Bones/joints: Unremarkable. No acute fracture. Paranasal sinuses: Moderate to marked mucosal thickening left maxillary sinus. Mastoid air cells: Visualized mastoid air cells are well aerated. Soft tissues: Unremarkable. IMPRESSION: No acute intracranial process. Thank you for allowing us to participate in the care of your patient. Dictated and Authenticated by: Terrance Ayala MD 02/11/2021 5:11 PM Central Time ([place] & [place]) Chest xray: PROCEDURE INFORMATION: Exam: XR Chest Exam date and time: 02/11/2021 5:00 PM Age: 75 years old Clinical indication: Other: Chest pain TECHNIQUE: Imaging protocol: XR of the chest. Views: 1 view. Total images: 1 COMPARISON: CT Chest wo Cont 07/07/2020 3:49 PM FINDINGS: Lungs: Minimal hazy opacity lung bases accentuated by overlying soft tissues. Pleural spaces: Unremarkable. No pleural effusion. No pneumothorax. Heart/Mediastinum: Borderline cardiomegaly. Bones/joints: Sternotomy wires. IMPRESSION: Haziness projecting over the lower lungs may reflect overlying soft tissues although difficult to completely exclude underlying atelectasis/infiltrate especially at the left base. Thank you for allowing us to participate in the care of your patient. Dictated and Authenticated by: Terrance Aylaa MD 02/11/2021 5:18 PM Central Time ([place] & [place]) See rad report Departure - Departure Time of Disposition: 18:13 Disposition: Home, Self-Care 01 Condition: Fair Clinical Impression: Stuttering Dementia Qualifiers: Dementia type: unspecified type Dementia behavioral disturbance: without behavioral disturbance Qualified Code(s): F03.90 - Unspecified dementia without behavioral disturbance Diabetes mellitus Qualifiers: Diabetes mellitus type: type 2 Diabetes mellitus ocean transportation intermediary insulin use: without shelter use Diabetes mellitus complication status: without complication Qualified Code(s): E11.9 - Type 2 diabetes mellitus without complications Pneumonia Qualifiers: Pneumonia type: due to unspecified organism Laterality: left Lung location: lower lobe of lung Qualified Code(s): J18.9 - Pneumonia, unspecified organism - Discharge Information *PRESCRIPTION DRUG MONITORING PROGRAM REVIEWED*: No *COPY OF PRESCRIPTION DRUG MONITORING REPORT IN PATIENT KALEB: No Instructions: Type 2 Diabetes Mellitus, Self Care, Adult, [id number], Dementia, [id number], Community-Acquired Pneumonia, Adult, [id number] Referrals: Sarah Felder NP [Primary Care Provider] - Forms: ED Department Discharge Additional Instructions: Return to the ER with any worsening of problems Follow up with your primary care facility next week RX: Azithromycin (Zpack) Sepsis Event Note (ED) - Evaluation Sepsis Screening Result: No Definite Risk I have read and agree with the documentation that has been completed regarding this visit. By signing this record, I attest that the documentation was completed in my physical presence and is an accurate record of the encounter.
== END 2021-02-11 18:38 | disposition home or self-care (01) ==
LOC: DL.ED 15:38
DX: F03.90 Unspecified dementia, unspecified severity, without behavioral disturbance, psychotic disturbance, mood disturbance, and anxiety (principal); J18.9 Pneumonia, unspecified organism; E11.9 Type 2 diabetes mellitus without complications; F98.5 Adult onset fluency disorder; I25.10 Atherosclerotic heart disease of native coronary artery without angina pectoris; E78.00 Pure hypercholesterolemia, unspecified; I10 Essential (primary) hypertension; Z86.16 Personal history of COVID-19; Z79.82 Long term (current) use of aspirin; Z95.1 Presence of aortocoronary bypass graft; Z79.899 Other long term (current) drug therapy; Z88.1 Allergy status to other antibiotic agents
CPT/HCPCS: 36415; 70450; 71045; 80053; 80305-QW; 80307; 81001; 85025; 85610; 85651; 86140; 93005; 93010; 99284; 99285-25

== ENCOUNTER 2022-04-17 16:11 | Emergency (ER) | payer MEDICARE, OTHER ==
[2022-04-17 16:28] VITALS: BP 126/65; PULSE 69
== END 2022-04-17 17:55 | disposition home or self-care (01) ==
LOC: DL.ED 16:11
DX: S01.01XA Laceration without foreign body of scalp, initial encounter (principal); I25.10 Atherosclerotic heart disease of native coronary artery without angina pectoris; E78.00 Pure hypercholesterolemia, unspecified; I10 Essential (primary) hypertension; E11.9 Type 2 diabetes mellitus without complications; Z79.899 Other long term (current) drug therapy; Z88.0 Allergy status to penicillin; Z79.82 Long term (current) use of aspirin; Z79.84 Long term (current) use of oral hypoglycemic drugs; W22.09XA Striking against other stationary object, initial encounter
CPT/HCPCS: 70450; 99283

== ENCOUNTER 2024-09-22 10:34 | Emergency (ER) | payer OTHER ==
[2024-09-22 10:45] VITALS: BP 156/76; PULSE 85
== END 2024-09-22 11:15 | disposition home or self-care (01) ==
LOC: DL.ED 10:34
DX: M62.838 Other muscle spasm (principal); I25.10 Atherosclerotic heart disease of native coronary artery without angina pectoris; I10 Essential (primary) hypertension; E78.00 Pure hypercholesterolemia, unspecified; J45.909 Unspecified asthma, uncomplicated; E11.9 Type 2 diabetes mellitus without complications; Z86.16 Personal history of COVID-19; Z96.659 Presence of unspecified artificial knee joint; Z87.891 Personal history of nicotine dependence; Z88.0 Allergy status to penicillin; Z88.8 Allergy status to other drugs, medicaments and biological substances; Z79.51 Long term (current) use of inhaled steroids; Z79.82 Long term (current) use of aspirin; Z79.84 Long term (current) use of oral hypoglycemic drugs; Z79.899 Other long term (current) drug therapy
CPT/HCPCS: 99283

== ENCOUNTER 2025-03-11 15:13 | Inpatient (IN) | payer MEDICARE, OTHER ==
[2025-03-11] MEDS ORDERED: Sodium Chloride 0.9% 10 ML Syringe FLUSH PRN (15:29)
[2025-03-11] MEDS: Acetaminophen/HYDROcodone 325-5 MG Tab PO ONE (15:39)
[2025-03-11 15:41] LABS: BASOPHILS PERCENT AUTO 0.1 % (0.0-1.0); EOSINOPHILS PERCENT AUTO 0.1 % (1.0-3.0); HEMATOCRIT 39.5 % (40.0-54.0); HEMOGLOBIN 13.6 g/dL (14.0-18.0); LYMPHOCYTES PERCENT AUTO 5.6 % (20.5-50.1); MEAN CORPUSCULAR HGB CONC 34.4 g/dL (33.0-35.0); MEAN CORPUSCULAR VOLUME 81.4 fL (80-100); MONOCYTES PERCENT AUTO 9.4 % (2-8); NEUTROPHILS PERCENT AUTO 84.8 % (42.2-75.2); PLATELET COUNT,PLT 227 10^3/uL (150-450); RED BLOOD CELL COUNT 4.85 10^6/uL (4.6-6.2); WHITE BLOOD CELL COUNT,WBC 31.5 10^3/uL (5.0-10.0)
[2025-03-11] MEDS: Iopamidol 612 MG/ML 100 ML Bottle IVPUSH ONE (15:54)
[2025-03-11 16:04] LABS: A/G RATIO 1.2; ALBUMIN 3.8 g/dL (3.4-5.0); ANION GAP 16.6 mEq/L (7-13); BILIRUBIN TOTAL 1.3 mg/dL (0.2-1.0); BUN/CREATININE RATIO 28.2 (No establ ref range); CALCIUM 9.3 mg/dL (8.5-10.1); CREATININE 1.1 mg/dL (0.70-1.30); EST CRCL DRUG DOSING (CG) 45.6 mL/min; INR 1.1 (0.9-1.2); MAGNESIUM 1.2 mg/dL (1.8-2.4); POTASSIUM,K 4.6 mmol/L (3.5-5.1); PROTEIN TOTAL,TP 7.1 g/dL (6.4-8.2); PROTHROMBIN TIME 11.9 SEC (9.0-12.0)
[2025-03-11] MEDS: Lactated Ringers 1,000 ML IV SCH (16:15)
[2025-03-11] MEDS: Magnesium Sulfate 2 GM/50 mL 2 GM in Premix Bag 1 BAG IV ONE (16:15)
[2025-03-11] MEDS: Levofloxacin/Dextrose 5%-Water 750 MG in Premix Bag 1 BAG IV ONE (17:13)
[2025-03-11 18:02] LABS: APPEARANCE,URINE CLEAR (CLEAR); BILIRUBIN,URINE NEGATIVE (NEGATIVE); COLOR,URINE YELLOW (YELLOW); GLUCOSE,URINE NEGATIVE (NEGATIVE); KETONES,URINE NEGATIVE (NEGATIVE); LEUKOCYTE ESTERASE,URINE NEGATIVE (NEGATIVE); NITRITE,URINE NEGATIVE (NEGATIVE); OCCULT BLOOD,URINE NEGATIVE (NEGATIVE); PH,URINE 5.5 (5.0-9.0); PROTEIN,URINE NEGATIVE (NEGATIVE); UROBILINOGEN,URINE 0.2 mg/dL (0.2-1.0)
[2025-03-11] MEDS ORDERED: Acetaminophen 325 MG Tab PO PRN (19:50)
[2025-03-11] MEDS ORDERED: hydrALAZINE 20 MG/ML SDV IVPUSH PRN (19:55)
[2025-03-11] MEDS ORDERED: Metoprolol Tartrate 5 MG/5 ML SDV IVPUSH PRN (19:55)
[2025-03-11] MEDS ORDERED: Ketorolac 30 MG/ML SDV IVPUSH PRN ×2 (20:00→20:50)
[2025-03-11] MEDS ORDERED: Ondansetron 4 MG/2 ML SDV IVPUSH PRN (20:00)
[2025-03-11] MEDS ORDERED: Aspirin 81 MG Tab.EC PO SCH (20:00)
[2025-03-11] MEDS ORDERED: Melatonin 3 MG Tab PO PRN (20:00)
[2025-03-11] MEDS ORDERED: Cyanocobalamin (Vitamin B12) 1,000 MCG/ML SDV IM SCH (20:00)
[2025-03-11] MEDS ORDERED: traMADol 50 MG Tab PO PRN (20:05)
[2025-03-11] MEDS ORDERED: 50% Dextrose in Water 50 ML Syringe IVPUSH PRN (20:17)
[2025-03-11] MEDS ORDERED: Glucagon,Human Recombinant 1 MG Vial IM PRN (20:17)
[2025-03-11] MEDS ORDERED: Diclofenac Sodium 1% Gel 100 GM Tube TOP PRN (20:47)
[2025-03-11] MEDS ORDERED: Albuterol 6.7 GM Inhaler INH PRN (20:55)
[2025-03-11] MEDS ORDERED: Donepezil 10 MG Tab PO SCH (21:00)
[2025-03-11] MEDS: cefTRIAXone 1 GM Vial IVPUSH SCH (21:18)
[2025-03-11] MEDS: guaiFENesin/Dextromethorphan 100-10 MG/5 ML Soln 5 ML Cup PO PRN (21:18)
[2025-03-11] MEDS: Venlafaxine 150 MG Cap.ER PO SCH (21:19)
[2025-03-11] MEDS: Famotidine 20 MG/2 ML SDV IVPUSH SCH (21:19)
[2025-03-11] MEDS: Cyclobenzaprine 10 MG Tab PO PRN (21:19)
[2025-03-11] MEDS: Loratadine 10 MG Tab PO SCH (21:20)
[2025-03-11] MEDS: Zolpidem 5 MG Tab PO PRN (21:20)
[2025-03-11] MEDS: Tamsulosin 0.4 MG Cap.ER PO SCH (21:20)
[2025-03-11] MEDS: Melatonin 3 MG Tab PO PRN (21:21)
[2025-03-11] MEDS: Simvastatin 40 MG Tab PO SCH (21:21)
[2025-03-11] MEDS: guaiFENesin 600 MG Tab.ER PO SCH (21:21)
[2025-03-11] MEDS: Dexamethasone 4 MG/ML SDV IVPUSH ONE (21:22)
[2025-03-11] MEDS: buPROPion 150 MG Tab.ER PO SCH (21:26)
[2025-03-11] MEDS: Lidocaine 5% 700 MG Patch TOP SCH (22:00)
[2025-03-12] MEDS: Pantoprazole 40 MG Tab.CR PO SCH (05:11)
[2025-03-12] MEDS ORDERED: Non-Formulary Medication 1 Each (Trospium Chloride [Trospium Chloride] 20 MG Tablet) PO SCH (06:00)
[2025-03-12 06:26] LABS: HEMATOCRIT 38.2 % (40.0-54.0); HEMOGLOBIN 12.7 g/dL (14.0-18.0); LYMPHOCYTES PERCENT AUTO 4.9 % (20.5-50.1); MEAN CORPUSCULAR HEMOGLOBIN 27.6 pg (27.0-34.0); MEAN CORPUSCULAR HGB CONC 33.2 g/dL (33.0-35.0); NEUTROPHILS PERCENT AUTO 92.1 % (42.2-75.2); PLATELET COUNT,PLT 199 10^3/uL (150-450); WHITE BLOOD CELL COUNT,WBC 25.8 10^3/uL (5.0-10.0)
[2025-03-12 06:51] LABS: ALBUMIN 3.3 g/dL (3.4-5.0); ANION GAP 15.5 mEq/L (7-13); BILIRUBIN TOTAL 0.8 mg/dL (0.2-1.0); BUN/CREATININE RATIO 19.4 (No establ ref range); C-REACTIVE PROTEIN 13.12 ng/dL (<=0.50); CALCIUM 9.2 mg/dL (8.5-10.1); CREATININE 0.93 mg/dL (0.70-1.30); EST CRCL DRUG DOSING (CG) 49.74 mL/min; MAGNESIUM 1.7 mg/dL (1.8-2.4); POTASSIUM,K 4.5 mmol/L (3.5-5.1); PROTEIN TOTAL,TP 6.7 g/dL (6.4-8.2)
[2025-03-12 06:54] LABS: A/G RATIO 0.97
[2025-03-12] MEDS ORDERED: Non-Formulary Medication 1 Each (Fluticasone/Vilanterol [Breo Ellipta 200-25 Mcg Inhalatio INH SCH (09:00)
[2025-03-12] MEDS ORDERED: Losartan 50 MG Tab PO SCH (09:00)
[2025-03-12] MEDS ORDERED: Bisacodyl 10 MG Supp RECTAL PRN (09:13)
[2025-03-12] MEDS: Formoterol/Mometasone 100-5 MCG 8.8 GM Inhaler INH SCH (09:36)
[2025-03-12] MEDS: Albuterol/Ipratropium 3.0-0.5 MG/3 ML Neb Soln NEB SCH (09:36)
[2025-03-12] MEDS: Tiotropium Bromide 4 GM Inhalation Spray (2.5mcg/1 dose; 10 doses) INH SCH (09:36)
[2025-03-12] MEDS: Lidocaine 5% 700 MG Patch TOP SCH (09:38)
[2025-03-12] MEDS: Azithromycin 500 MG in Sodium Chloride 0.9% 250 ML IV SCH (09:39)
[2025-03-12] MEDS: Insulin Lispro 100 Units/ML 3 ML Vial SUBCUT SCH (09:40)
[2025-03-12] MEDS: Carvedilol 25 MG Tab PO SCH (09:43)
[2025-03-12] MEDS: Lisinopril 20 MG Tab PO SCH (09:43)
[2025-03-12] MEDS: predniSONE 20 MG Tab PO SCH (09:43)
[2025-03-12] MEDS: glipiZIDE 5 MG Tab PO SCH (09:44)
[2025-03-12] MEDS: amLODIPine 5 MG Tab PO SCH (09:44)
[2025-03-12] MEDS: metFORMIN 500 MG Tab PO SCH (09:45)
[2025-03-12] MEDS: Losartan 50 MG Tab PO SCH (11:38)
[2025-03-12] MEDS: Magnesium Sulfate 2 GM/50 mL 2 GM in Premix Bag 1 BAG IV ONE (11:43)
[2025-03-13 06:42] LABS: BASOPHILS PERCENT AUTO 0.2 % (0.0-1.0); EOSINOPHILS PERCENT AUTO 0.3 % (1.0-3.0); HEMATOCRIT 35.3 % (40.0-54.0); HEMOGLOBIN 11.4 g/dL (14.0-18.0); LYMPHOCYTES PERCENT AUTO 14.7 % (20.5-50.1); MEAN CORPUSCULAR HEMOGLOBIN 27.1 pg (27.0-34.0); MEAN CORPUSCULAR HGB CONC 32.3 g/dL (33.0-35.0); MEAN CORPUSCULAR VOLUME 83.8 fL (80-100); MONOCYTES PERCENT AUTO 8.5 % (2-8); NEUTROPHILS PERCENT AUTO 76.3 % (42.2-75.2); PLATELET COUNT,PLT 188 10^3/uL (150-450); RED BLOOD CELL COUNT 4.21 10^6/uL (4.6-6.2); WHITE BLOOD CELL COUNT,WBC 17.9 10^3/uL (5.0-10.0)
[2025-03-13 07:06] LABS: ALBUMIN 2.9 g/dL (3.4-5.0); ANION GAP 12.4 mEq/L (7-13); BILIRUBIN TOTAL 0.3 mg/dL (0.2-1.0); BUN/CREATININE RATIO 27.7 (No establ ref range); C-REACTIVE PROTEIN 8.46 ng/dL (<=0.50); CREATININE 0.94 mg/dL (0.70-1.30); EST CRCL DRUG DOSING (CG) 49.21 mL/min; MAGNESIUM 1.8 mg/dL (1.8-2.4); POTASSIUM,K 4.4 mmol/L (3.5-5.1); PROTEIN TOTAL,TP 6.1 g/dL (6.4-8.2)
[2025-03-13 07:09] LABS: A/G RATIO 0.91
[2025-03-13] MEDS: predniSONE 20 MG Tab PO SCH (08:10)
[2025-03-13] MEDS ORDERED: Polyethylene Glycol 3350 Powder 17 GM Packet PO PRN (14:18)
[2025-03-13] MEDS: Polyethylene Glycol 3350 Powder 17 GM Packet PO ONE (14:31)
[2025-03-14 06:16] LABS: BASOPHILS PERCENT AUTO 0.2 % (0.0-1.0); EOSINOPHILS PERCENT AUTO 0.2 % (1.0-3.0); HEMATOCRIT 36.2 % (40.0-54.0); HEMOGLOBIN 11.9 g/dL (14.0-18.0); LYMPHOCYTES PERCENT AUTO 20.4 % (20.5-50.1); MEAN CORPUSCULAR HEMOGLOBIN 27.5 pg (27.0-34.0); MEAN CORPUSCULAR HGB CONC 32.9 g/dL (33.0-35.0); MEAN CORPUSCULAR VOLUME 83.8 fL (80-100); MONOCYTES PERCENT AUTO 7.7 % (2-8); NEUTROPHILS PERCENT AUTO 71.5 % (42.2-75.2); PLATELET COUNT,PLT 216 10^3/uL (150-450); RED BLOOD CELL COUNT 4.32 10^6/uL (4.6-6.2); WHITE BLOOD CELL COUNT,WBC 16.7 10^3/uL (5.0-10.0)
[2025-03-14 06:39] LABS: ALBUMIN 2.9 g/dL (3.4-5.0); ANION GAP 13.7 mEq/L (7-13); BILIRUBIN TOTAL 0.4 mg/dL (0.2-1.0); BUN/CREATININE RATIO 24.7 (No establ ref range); C-REACTIVE PROTEIN 3.94 ng/dL (<=0.50); CALCIUM 9.1 mg/dL (8.5-10.1); CREATININE 0.89 mg/dL (0.70-1.30); EST CRCL DRUG DOSING (CG) 51.98 mL/min; MAGNESIUM 1.6 mg/dL (1.8-2.4); POTASSIUM,K 4.7 mmol/L (3.5-5.1); PROTEIN TOTAL,TP 6.5 g/dL (6.4-8.2)
[2025-03-14 06:48] LABS: A/G RATIO 0.81
[2025-03-14] MEDS: Magnesium Sulfate 2 GM/50 mL 2 GM in Premix Bag 1 BAG IV ONE (10:41)
[2025-03-14] MEDS: Magnesium Oxide 400 MG Tab PO ONE (10:45)
[2025-03-14 12:01] VITALS: BP 82/30; PULSE 81
[2025-03-20] MEDS ORDERED: Cyanocobalamin (Vitamin B12) 1,000 MCG/ML SDV IM SCH (09:00)
== END 2025-03-14 11:40 | disposition home or self-care (01) | DRG 190 ==
LOC: DL.ED 15:13 → DL.MS 17:11
PROVIDERS: ADMIT Internal Medicine; ATTEND Internal Medicine
DX: J44.1 Chronic obstructive pulmonary disease with (acute) exacerbation (principal); J18.9 Pneumonia, unspecified organism; F02.B3 Dementia in other diseases classified elsewhere, moderate, with mood disturbance; I50.32 Chronic diastolic (congestive) heart failure; J44.0 Chronic obstructive pulmonary disease with (acute) lower respiratory infection; Z96.653 Presence of artificial knee joint, bilateral; M25.562 Pain in left knee; H91.90 Unspecified hearing loss, unspecified ear; H54.7 Unspecified visual loss; I25.10 Atherosclerotic heart disease of native coronary artery without angina pectoris; D72.825 Bandemia; G30.9 Alzheimer's disease, unspecified; I10 Essential (primary) hypertension; I11.0 Hypertensive heart disease with heart failure; G47.33 Obstructive sleep apnea (adult) (pediatric); K21.9 Gastro-esophageal reflux disease without esophagitis; G25.81 Restless legs syndrome; N28.1 Cyst of kidney, acquired; N40.0 Benign prostatic hyperplasia without lower urinary tract symptoms; K57.30 Diverticulosis of large intestine without perforation or abscess without bleeding; K40.90 Unilateral inguinal hernia, without obstruction or gangrene, not specified as recurrent; K43.9 Ventral hernia without obstruction or gangrene; E83.42 Hypomagnesemia; M25.561 Pain in right knee; K59.00 Constipation, unspecified; M17.0 Bilateral primary osteoarthritis of knee; E53.8 Deficiency of other specified B group vitamins; E78.00 Pure hypercholesterolemia, unspecified; Z85.828 Personal history of other malignant neoplasm of skin; Z95.5 Presence of coronary angioplasty implant and graft; Z85.820 Personal history of malignant melanoma of skin; E11.9 Type 2 diabetes mellitus without complications; Z98.890 Other specified postprocedural states; Z88.0 Allergy status to penicillin; Z88.8 Allergy status to other drugs, medicaments and biological substances; Z79.52 Long term (current) use of systemic steroids; Z79.82 Long term (current) use of aspirin; Z79.84 Long term (current) use of oral hypoglycemic drugs; Z79.899 Other long term (current) drug therapy; Z86.16 Personal history of COVID-19
CPT/HCPCS: 36415; 71260; 74177; 80053; 82550; 83605; 83690; 83735; 83880; 84484; 85025; 85610; 87040 ×2; 93005; 93010; 96365; 99284; 99285; A9270; J3475; J7120; Q9967; 81003; 82947; 86140; 94640; 94664; 97116-GP; 97161-GP; 97165-GO; J0456; J0696; J1100; J1815-GY; J1956; J7050; J7512